=== PATIENT | female | born 1970 | race Caucasian/White ===

== ENCOUNTER 2025-07-13 15:59 | Inpatient (IN) | payer SELFPAY ==
[2025-07-13] VITALS (12 sets, daily range): BP systolic 94–115; BP diastolic 48–58; PULSE 70–101; RESP 16; TEMP 36.6; O2SAT 96–100; BMI 25.3; BMI 25.2
--- NOTE | ~2025-07-13 | CT_ITS ---
EXAMINATION: CT forearm RT w con DATE: 07/13/2025 18:25 INDICATION: Right forearm swelling with concern for abscess. TECHNIQUE: High resolution computed tomography (CT) of the right forearm was performed with 100 mL Omnipaque-350 intravenous contrast. Additional sagittal and coronal reconstructions were performed. Automated exposure control and iterative reconstruction technique were employed. The dose-length product was 1023.10 mGy-cm. COMPARISON: Right forearm radiographs dated 07/13/2025 FINDINGS: Bone alignment is normal. No fracture. Moderate-sized enthesophyte at the olecranon. 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 No elbow joint effusion. There is diffuse mild skin thickening and prominent subcutaneous edema in the right upper arm (at the posterior medial mid upper arm is becoming more severe as it extends distally throughout the forearm and extending over the dorsum of the hand. No evident abscess or soft tissue gas. There are several enhancing ovoid likely reactive lymph nodes along the vasculature at the antecubital fossa and distal upper arm which measure up to 7 mm in maximal short axis diameter. The vasculature of the visualized right arm appears normal and well opacified with no evident hemodynamically significant stenosis or thrombosis. IMPRESSION: 1. Diffuse nonspecific cellulitis throughout the right forearm without evident abscess or soft tissue gas. 2. Likely reactive lymphadenopathy at the antecubital fossa and distal upper arm. Reviewed, dictated and finalized at location A. ER/WAITRESS CAFETERIA IMPRESSION: 1. Diffuse nonspecific cellulitis throughout the right forearm without evident abscess or soft tissue gas. 2. Likely reactive lymphadenopathy at the antecubital fossa and distal upper ar m.
--- NOTE | ~2025-07-13 | XR_ITS ---
XR forearm RT 2V 07/13/2025 16:54 Indication: Right arm swelling Procedure: 2 views right forearm Comparison: No prior studies for comparison. Findings: There is anatomic alignment. No fracture, subluxation or dislocation. Mild diffuse soft tissue swelling. No foreign bodies. Impression: 1: No acute bone or joint abnormality. Reviewed, dictated and finalized at location O. E FOLLOWER Impression: 1: No acute bone or joint abnormality.
--- NOTE | ~2025-07-13 | XR_ITS ---
EXAMINATION: XR chest 2V DATE: 07/14/2025 08:20 INDICATION: Cough and wheezing TECHNIQUE: PA and lateral views of the chest were obtained. COMPARISON: Chest radiograph dated 06/15/12 FINDINGS: Very small bilateral pleural effusions with blunting at the posterior sulci but not the costophrenic angles. Bibasilar opacities, right greater than left which could represent atelectasis, pneumonia or mild pulmonary edema. The cardiomediastinal silhouette is normal. IMPRESSION: 1. Mild bibasilar opacities which could represent atelectasis, mild pulmonary edema or pneumonia. 2. Very small bilateral pleural effusions. Reviewed, dictated and finalized at location A. FITTER IMPRESSION: 1. Mild bibasilar opacities which could represent atelectasis, mild pulmonary e keesha or pneumonia. 2. Very small bilateral pleural effusions.
--- NOTE | ~2025-07-13 | US_ITS ---
EXAMINATION: US venous doppler UE RT DATE: 07/14/2025 16:07 INDICATION: Right upper extremity pain and redness with swelling TECHNIQUE: Ruano scale images with and without compression and Doppler images of the right upper extremity veins were obtained. COMPARISON: None. FINDINGS: The right internal jugular vein, subclavian vein, axillary vein, brachial veins, basilic vein, cephalic vein, radial vein, and ulnar vein are patent. IMPRESSION: 1. Patent right upper extremity veins. No evidence of deep venous thrombosis. Reviewed, dictated and finalized at location O. S ENGINEER ACCOUNT MANAGER
--- OUTSIDE RECORDS SUMMARY | 2025-07-13 16:02 | XMS_ITS | Patient Health Record ---
Author Organization [facility] Address [address] [place] [address] Phone [phone] Care Team Providers Care Head Of Ethics And Compliance Name Role Phone Ly Pelaez APRN Primary Care Provider [employer] [facility], Adult CHRISTINA Unavailabl e [phone] Reason For Referral No Information Medications Medication SIG (Take, Route, Frequency, Duration) Notes Start Date End Date Diagnosis (ICD Code) Status Lipitor 10 MG Tablet 1 tablet Orally Once a day; Duration: 30 day(s) 06/09/2016 Hyperlipidemia, unspecified hyperlipidemia type (ICD_10 - E78.5) Active Suboxone 8-2 MG Film 1/4 application under the tongue and allow to dissolve Sublingual three times a day; Duration: 7 days Substance abuse (ICD_10 - F19.10) Active Remeron 15 MG Tablet 1 tablet at bedtime Orally Once a day; Duration: 30 day(s) Substance abuse (ICD_10 - F19.10) Active Social History Sex Observation Social History Observation Description Sex Observation Female Social History Primary Social History Social Info Question Answer Notes Living Arrangement Living Arrangement: Independent Irais ing Is this a supportive environment? Yes Tobacco Use - do not use Tobacco Use: Current Duration: 30 Years Interested in quitting: No Type of Tobacco: Cigarettes Quanity per day: .5 pack to 1 pack Quit Attempts in the past: No Employment Status Employment Status: Unemployed Illicit Substance Usage Illicit Substance Usage: Yes Interested in quitting: Yes Substance Used: Heroin Frequency Heroin is used: every day Alcohol Use Alcohol Use Frequency: Never Problems Problem Type SNOMED Code ICD Code Dates Problem Status W/U Status Risk Notes Problem Substance abuse (2535549700) Substance abuse (F19.10) Added On:05/22 Active confirmed Problem Substance dependence (1507668502) Substance dependence (F19.20) Added On:06/17 Active confirmed Problem Depressive disorder (disorder) (71241868) Depression, unspecified depression type (F32.9) Added On:05/22 Active confirmed Problem Hyperlipidaemia (94240112) Hyperlipidemia, unspecified hyperlipidemia type (E78.5) Added On:06/09 Active confirmed Plan Of Treatment Pending Test Test Name Order Date Hemoglobin A1c* 06/09/2016 Glucose Tolerance (3 Sp Blood) 6 CMP14+LP+CBC/D/Plt+T4+TSH 05/22/2016 Insurance Providers Payer Name Payer Address Payer Phone Subscriber Number Group Number Insured Name Patient Relationship to Insured Coverage Start Date Coverage End Date [facility] [address] [address] [place] [phone] [id number] Lily Gatica Self - patient is the insured 4
--- NOTE | 2025-07-13 16:43 | ECG_ITS ---
Test Date: 2025-07-13 17:30:09 Measurements Intervals [place] Rate: 96 P: 62 NH: 143 QRS: 76 QRSD: 91 T: 47 QT: 322 QTc: 408 Interpretive Statements SINUS RHYTHM POSSIBLE LEFT ATRIAL ENLARGEMENT MINIMAL Q WAVES- ANTEROLAT/INF LEADS BORDERLINE ECG No previous ECG available for comparison Electronically Signed On 07-13-2025 20:32:28 EVP GENERAL COUNSEL by Melvin Winters D.O.
--- NOTE | 2025-07-13 16:46 | ED.SKABFB ---
HPI - Skin/Abscess/Foreign Bdy General Chief complaint: Skin/Abscess/Foreign Body <Rachael Pedro APRN - Last Filed: 07/13/25 19:10> Stated complaint: R ARM SWELLING,REDNESS SCRATCHED 5 DAYS AGO <Rachael Pedro APRN - Last Filed: 07/13/25 19:10> Time Seen by Provider: 07/13/25 16:09 <Rachael Pedro APRN - Last Filed: 07/13/25 19:10> History of Present Illness HPI narrative: Patient is a 54-year-old female who presents to the ER with right forearm redness and swelling that extends up to her mid right bicep. She reports she 1st noticed the redness 4-5 days ago. Patient reports she was cleaning a neighbor's house when she reached into event and scratched her right forearm. She reports she used to be an IV drug user but has not used in years. Patient endorses a history of sepsis and was on Suboxone for many years. She denies taking any daily medications at this time. Patient denies any recent fevers, purulent drainage, or rashes to other parts of her body. She endorses decreased range of motion in her right elbow, right wrist, right hand, and right digits. <Rachael Pedro APRN - Last Filed: 07/13/25 19:10> Related Data Allergies/Adverse reactions: Allergies Allergy/AdvReac Type Severity Reaction Status Date / Time No Known Allergies Allergy Verified 07/13/25 16:00 <Rachael Pedro APRN - Last Filed: 07/13/25 19:10> Review of Systems Review of Systems: All systems reviewed & are unremarkable except as noted in HPI and below <Rachael Pedro APRN - Last Filed: 07/13/25 19:10> Exam Narrative: GENERAL: Well appearing, well-nourished, non-toxic, in mild distress due to pain. HEAD: Normocephalic, atraumatic. NECK: Supple. No adenopathy, no masses. RESPIRATORY: Airway patent, respirations nonlabored. Clear to auscultation bilaterally, no rales, rhonchi, wheezing. CARDIOVASCULAR: Tachycardia without murmurs, rubs, or gallops. Peripheral pulses 2+ and equal bilaterally. ABDOMINAL: Soft, nontender, nondistended, no hepatosplenomegaly. Normoactive BS. MUSCULOSKELETAL: Moves all extremities. Strength/ROM intact without gross deformities. SKIN: Warm, dry, normal color. No rashes. EXCESSIVE R forearm/upper arm redness and swelling, intermittent blisters, no visible oozing or drainage. NEURO: A&O X3. Speech clear. Cranial nerves II-XII intact. No ataxic movements. PSYCHIATRIC: Appropriate mood and affect. Normal interaction. <Rachael Pedro, GI TECH - Last Filed: 07/13/25 19:10> Course MANAGER OF MANUFACTURING/PA Physician Supervision This visit was performed by both a physician and an Advanced Practice Provider. I performed all aspects of the Medical Decision Making as documented. <Harry Ritchie DO - Last Filed: 07/13/25 21:31> Vital Signs Vital signs: Vital Signs Temperature 97.9 F 07/13/25 16:01 Pulse Rate 101 H 07/13/25 16:01 Respiratory Rate 16 07/13/25 16:01 Blood Pressure 111/51 L 07/13/25 16:01 Pulse Oximetry 96 07/13/25 16:01 Oxygen Delivery Room Air 07/13/25 16:01 Temperature 97.9 F 07/13/25 16:01 Pulse Rate 88 07/13/25 18:49 Respiratory Rate 16 07/13/25 18:49 Blood Pressure 104/48 L 07/13/25 18:49 Pulse Oximetry 99 07/13/25 18:49 Oxygen Delivery Room Air 07/13/25 16:01 <Rachael Pedro, GI TECH - Last Filed: 07/13/25 19:10> Vital Signs Temperature 97.9 F 07/13/25 16:01 Pulse Rate 101 H 07/13/25 16:01 Respiratory Rate 16 07/13/25 16:01 Blood Pressure 111/51 L 07/13/25 16:01 Pulse Oximetry 96 07/13/25 16:01 Oxygen Delivery Room Air 07/13/25 16:01 Temperature 97.9 F 07/13/25 16:01 Pulse Rate 88 07/13/25 18:49 Respiratory Rate 16 07/13/25 18:49 Blood Pressure 104/48 L 07/13/25 18:49 Pulse Oximetry 99 07/13/25 18:49 Oxygen Delivery Room Air 07/13/25 16:01 <Harry Ritchie DO - Last Filed: 07/13/25 21:31> [facility] Narrative Medical decision making narrative: Patient is a 54-year-old female who presents to the ER with right forearm redness and swelling that extends up to her mid right bicep. She reports she 1st noticed the redness 4-5 days ago. Patient reports she was cleaning a neighbor's house when she reached into event and scratched her right forearm. She reports she used to be an IV drug user but has not used in years. Patient endorses a history of sepsis and was on Suboxone for many years. She denies taking any daily medications at this time. Patient denies any recent fevers, purulent drainage, or rashes to other parts of her body. She endorses decreased range of motion in her right elbow, right wrist, right hand, and right digits. Labs Ordered: CBC, CMP, UDS, lactic acid, PTT, INR, CRP, blood cultures Imaging Ordered: CT right forearm, right forearm x-ray Medications Ordered: 1.7 L normal saline IV bolus, vancomycin IV, Toradol IV, ceftriaxone IV Results: Pt's R forearm x-ray indicates There is anatomic alignment. No fracture, subluxation or dislocation. Mild diffuse soft tissue swelling. No foreign bodies. Diagnosis: right forearm cellulitis extending into right bicep 0- Care signed out to Dr. Ritchie pending CT scan results. <Rachael Pedro, CHASE - Last Filed: 07/13/25 19:10> Patient is a 54-year-old female who presents to the ER with right forearm redness and swelling that extends up to her mid right bicep. She reports she 1st noticed the redness 4-5 days ago. Patient reports she was cleaning a neighbor's house when she reached into event and scratched her right forearm. She reports she used to be an IV drug user but has not used in years. Patient endorses a history of sepsis and was on Suboxone for many years. She denies taking any daily medications at this time. Patient denies any recent fevers, purulent drainage, or rashes to other parts of her body. She endorses decreased range of motion in her right elbow, right wrist, right hand, and right digits. Labs Ordered: CBC, CMP, UDS, lactic acid, PTT, INR, CRP, blood cultures Imaging Ordered: CT right forearm, right forearm x-ray Medications Ordered: 1.7 L normal saline IV bolus, vancomycin IV, Toradol IV, ceftriaxone IV Results: Pt's R forearm x-ray indicates There is anatomic alignment. No fracture, subluxation or dislocation. Mild diffuse soft tissue swelling. No foreign bodies. Diagnosis: right forearm cellulitis extending into right bicep 1900- Care signed out to Dr. Ritchie pending CT scan results. CT scan showed left forearm cellulitis without rim enhancing fluid collection. No acute osseous pathology. Left upper arm antecubital fossa lymphadenopathy. Patient will require admission for severe cellulitis. Case was discussed with hospitalist who will admit the patient. <Harry Ritchie DO - Last Filed: 07/13/25 21:31> Differential Diagnosis Differential Diagnosis: cellulitis, abscess, IV drug user, sepsis <Rachael Pedro APRN - Last Filed: 07/13/25 19:10> Lab Data MDM Lab Attestation statement: I personally reviewed the patient's lab results. <Rachael Pedro APRN - Last Filed: 07/13/25 19:10> Result diagrams: 07/13/25 17:23 07/13/25 17:23 <Rachael Pedro GI TECH - Last Filed: 07/13/25 19:10> Labs: Lab Results 07/13/25 07/13/25 Range/Units 17:23 17:35 WBC 11.2 H (4.5-10.0) K/mm3 RBC 4.65 (4.2-5.4) M/mm3 Hgb 13.4 (12.0-15.0) g/dL Hct 41.1 (37.0-47.0) % MCV 88.4 (80-100) fl MCH 28.8 (26-34) pg MCHC 32.6 (32-36) g/dl RDW 13.9 (11.5-14.5) % Plt Count 176 (150-375) k/mm3 MPV 9.8 (7.4-10.4) fl Immature Gran % (Auto) 0.4 (0-0.5) % Neut % (Auto) 80.5 H (45.5-73.1) % Lymph % (Auto) 9.4 L (18.3-44.2) % [place] % (Auto) 9.0 H (2.6-8.5) % Eos % (Auto) 0.4 (0-4.4) % Baso % (Auto) 0.3 (0.2-1.2) % Lymph # (Auto) 1.05 (0.9-3.2) K/mm3 [place] # (Auto) 1.0 H (0.1-0.6) K/mm3 Eos # (Auto) 0.0 (0-0.3) K/mm3 Baso # (Auto) 0.0 (0.0-0.1) K/mm3 Abs Immat Gran (auto) 0.04 H (0.00-0.031) K/mm3 Absolute Neuts (auto) 9.0 H (1.3-6.7) K/mm3 Absolute Nucleated RBC 0.000 (0.0-0.012) K/mm3 Nucleated RBC % 0.0 (0.0-0.2) % PT 13.5 (11.1-14.7) Seconds INR 1.0 APTT 24.8 (22.3-36.8) Seconds Sodium 134 L (137-145) mmol/L Potassium 3.6 (3.4-5.0) mmol/L Chloride 102 (98-107) mmol/L Carbon Dioxide 23 (22-30) mmol/L Anion Gap 9 (4-12) mmol/L BUN 22 H (7-17) mg/dL Creatinine 0.53 L (0.7-1.0) mg/dL Estim Creat Clear Calc 80 ml/min Estimated GFR > 60 (59 - ) Glucose 141 H (65-110) mg/dL Lactic Acid 0.9 (0.7-2.0) mmol/L Calcium 9.3 (8.4-10.2) mg/dL Total Bilirubin 0.6 (0.2-1.3) mg/dL AST 26 (14-36) U/L ALT 21 (6-35) U/L Alkaline Phosphatase 128 H (38-126) U/L C-Reactive Protein 36.7 H (<1.0) mg/dL Total Protein 7.7 (6.3-8.2) g/dL Albumin 4.0 (3.5-5.1) g/dL Urine Color Dark yellow (Yellow) Urine Appearance Cloudy H (Clear) Urine pH 5.5 (5.0-9.0) Ur Specific [place] 1.037 H (1.001-1.035) Urine Protein 2+ H (Negative) mg/dL Urine Glucose (UA) Negative (Negative) mg/dL Urine Ketones Trace H (Negative) mg/dL Ur Blood (Man) Negative (Negative) Urine Nitrate Negative (Negative) Urine Bilirubin 1+ H (Negative) Urine Urobilinogen 1.0 (<2.0) mg/dL Add Ur Microanalysis Reviewed Leukocyte Esterase Rfl 1+ H (Negative) CJ/UL Urine RBC 6-10 H (0-2) /hpf Urine WBC 6-10 H (0-3) /hpf Ur Squamous Epith Cells Many H (Few) /hpf Urine Bacteria 3+ H /hpf Urine Casts 3-5 Urine Opiates Screen Negative (Negative) Urine Methadone Screen Negative (Negative) Ur Barbiturates Screen Negative (Negative) Ur Phencyclidine Scrn Negative (Negative) Ur Amphetamine Screen Positive A (Negative) U Benzodiazepines Scrn Negative (Negative) Urine Cocaine Screen Negative (Negative) U Cannabinoids Screen Negative (Negative) <Rachael Pedro, GI TECH - Last Filed: 07/13/25 19:10> Lab Results 07/13/25 07/13/25 Range/Units 17:23 17:35 WBC 11.2 H (4.5-10.0) K/mm3 RBC 4.65 (4.2-5.4) M/mm3 Hgb 13.4 (12.0-15.0) g/dL Hct 41.1 (37.0-47.0) % MCV 88.4 (80-100) fl MCH 28.8 (26-34) pg MCHC 32.6 (32-36) g/dl RDW 13.9 (11.5-14.5) % Plt Count 176 (150-375) k/mm3 MPV 9.8 (7.4-10.4) fl Immature Gran % (Auto) 0.4 (0-0.5) % Neut % (Auto) 80.5 H (45.5-73.1) % Lymph % (Auto) 9.4 L (18.3-44.2) % [place] % (Auto) 9.0 H (2.6-8.5) % Eos % (Auto) 0.4 (0-4.4) % Baso % (Auto) 0.3 (0.2-1.2) % Lymph # (Auto) 1.05 (0.9-3.2) K/mm3 [place] # (Auto) 1.0 H (0.1-0.6) K/mm3 Eos # (Auto) 0.0 (0-0.3) K/mm3 Baso # (Auto) 0.0 (0.0-0.1) K/mm3 Abs Immat Gran (auto) 0.04 H (0.00-0.031) K/mm3 Absolute Neuts (auto) 9.0 H (1.3-6.7) K/mm3 Absolute Nucleated RBC 0.000 (0.0-0.012) K/mm3 Nucleated RBC % 0.0 (0.0-0.2) % PT 13.5 (11.1-14.7) Seconds INR 1.0 APTT 24.8 (22.3-36.8) Seconds Sodium 134 L (137-145) mmol/L Potassium 3.6 (3.4-5.0) mmol/L Chloride 102 (98-107) mmol/L Carbon Dioxide 23 (22-30) mmol/L Anion Gap 9 (4-12) mmol/L BUN 22 H (7-17) mg/dL Creatinine 0.53 L (0.7-1.0) mg/dL Estim Creat Clear Calc 80 ml/min Estimated GFR > 60 (59 - ) Glucose 141 H (65-110) mg/dL Lactic Acid 0.9 (0.7-2.0) mmol/L Calcium 9.3 (8.4-10.2) mg/dL Total Bilirubin 0.6 (0.2-1.3) mg/dL AST 26 (14-36) U/L ALT 21 (6-35) U/L Alkaline Phosphatase 128 H (38-126) U/L C-Reactive Protein 36.7 H (<1.0) mg/dL Total Protein 7.7 (6.3-8.2) g/dL Albumin 4.0 (3.5-5.1) g/dL Urine Color Dark yellow (Yellow) Urine Appearance Cloudy H (Clear) Urine pH 5.5 (5.0-9.0) Ur Specific [place] 1.037 H (1.001-1.035) Urine Protein 2+ H (Negative) mg/dL Urine Glucose (UA) Negative (Negative) mg/dL Urine Ketones Trace H (Negative) mg/dL Ur Blood (Man) Negative (Negative) Urine Nitrate Negative (Negative) Urine Bilirubin 1+ H (Negative) Urine Urobilinogen 1.0 (<2.0) mg/dL Add Ur Microanalysis Reviewed Leukocyte Esterase Rfl 1+ H (Negative) CJ/UL Urine RBC 6-10 H (0-2) /hpf Urine WBC 6-10 H (0-3) /hpf Ur Squamous Epith Cells Many H (Few) /hpf Urine Bacteria 3+ H /hpf Urine Casts 3-5 Urine Opiates Screen Negative (Negative) Urine Methadone Screen Negative (Negative) Ur Barbiturates Screen Negative (Negative) Ur Phencyclidine Scrn Negative (Negative) Ur Amphetamine Screen Positive A (Negative) U Benzodiazepines Scrn Negative (Negative) Urine Cocaine Screen Negative (Negative) U Cannabinoids Screen Negative (Negative) <Harry Ritchie DO - Last Filed: 07/13/25 21:31> Imaging Data Attestation: I personally reviewed and interpreted this imaging study as follows: <Rachael Pedro APRN - Last Filed: 07/13/25 19:10> Radiologist's impression: ITS Impressions Forearm X-Ray 07/13/25 17:08 Impression: 1: No acute bone or joint abnormality. <Rachael Pedro APRN - Last Filed: 07/13/25 19:10> ITS Impressions Forearm X-Ray 07/13/25 17:08 Impression: 1: No acute bone or joint abnormality. <Harry Ritchie DO - Last Filed: 07/13/25 21:31> Discharge Plan Discharge Clinical Impression: Methamphetamine abuse Cellulitis Qualifiers: Site of cellulitis: extremity Site of cellulitis of extremity: upper extremity Laterality: right Qualified Code(s): L03.113 - Cellulitis of right upper limb <Rachael Pedro APRN - Last Filed: 07/13/25 19:10> Patient Disposition: Still a Patient <Rachael Pedro APRN - Last Filed: 07/13/25 19:10> Condition: Stable <Rachael Pedro APRN - Last Filed: 07/13/25 19:10> Patient Language: Frisian <Rachael Pedro APRN - Last Filed: 07/13/25 19:10> Follow-up/Referrals: PHYSICIAN,STRIPER MACHINE [Primary Care Provider, Internal Medicine] <Rachael Pedro APRN - Last Filed: 07/13/25 19:10>
[2025-07-13 17:28] LABS: Hematocrit 41.1 % (37.0-47.0); Hemoglobin 13.4 g/dL (12.0-15.0); Immature Granulocyte Percent A 0.4 % (0-0.5); Lymphocytes Absolute Auto 1.05 K/mm3 (0.9-3.2); Mean Corpuscular HGB Conc 32.6 g/dl (32-36); Mean Corpuscular Hemoglobin 28.8 pg (26-34); Mean Corpuscular Volume 88.4 fl (80-100); Nucleated Red Blood Cells Absolute Auto 0.000 K/mm3 (0.0-0.012); Nucleated Red Blood Cells Perc 0.0 % (0.0-0.2); Platelet Count Result 176 k/mm3 (150-375); Red Blood Count 4.65 M/mm3 (4.2-5.4); White Blood Count 11.2 K/mm3 (4.5-10.0)
[2025-07-13] MEDS: KETOROLAC 15 MG/ML VIAL (*BKC) IV PUSH (17:36)
[2025-07-13] MEDS: SODIUM CHLORIDE 0.9% IV 800 ML 999 ML IV CONT (17:36)
[2025-07-13] MEDS: SODIUM CHLORIDE 0.9% IV 1,000 ML 999 ML IV CONT (17:36)
[2025-07-13 17:40] LABS: INR 1.0; Partial Thromboplastin Time 24.8 Seconds (22.3-36.8); Prothrombin Time 13.5 Seconds (11.1-14.7)
[2025-07-13 17:44] LABS: Alanine Aminotransferase 21 U/L (6-35); Albumin Level 4.0 g/dL (3.5-5.1); Alkaline Phosphatase 128 U/L (38-126); Anion Gap 9 mmol/L (4-12); Aspartate Amino Transferase 26 U/L (14-36); Bilirubin,Total 0.6 mg/dL (0.2-1.3); Blood Urea Nitrogen 22 mg/dL (7-17); Calcium 9.3 mg/dL (8.4-10.2); Carbon Dioxide 23 mmol/L (22-30); Chloride 102 mmol/L (98-107); Estimated CRCL calculation 80 ml/min; Estimated Glomerular Filt Rate > 60; Glucose 141 mg/dL (65-110); Potassium 3.6 mmol/L (3.4-5.0); Sodium 134 mmol/L (137-145); Total Protein 7.7 g/dL (6.3-8.2)
[2025-07-13 17:54] LABS: Add Urine Microscopic? YES; Appearance Urine Cloudy (Clear); Glucose Urine UA Negative (Negative); Leukocyte Esterase Ur 1+ LEU/UL (Negative); Need Manual Microscopic Reviewed; Nitrate Urine Negative (Negative); Specific Grav Ur 1.037 (1.001-1.035)
[2025-07-13 18:10] LABS: CRP 36.7 mg/dL (<1.0)
[2025-07-13 18:21] LABS: Cannabinoid Screen Urine Negative (Negative)
[2025-07-13] MEDS: cefTRIAXone 1 GM in SODIUM CHLORIDE 0.9% IV 50 ML 100 ML IVPB (20:14)
[2025-07-13] MEDS: VANCOMYCIN 1,500 MG/NS 500 ML 1,500 MG/500 ML BAG 250 MG IVPB (20:15)
--- NOTE | 2025-07-13 21:37 | PM.IMHP2 ---
H&P: HPI History of Present Illness Date/Time: 07/13/25 21:37 Chief Complaint: right arm redness and swelling Narrative: 54-year-old female with a past medical history of essential hypertension, COPD and pre diabetes (not on any home medications), heroin use greater than 10 years ago, and snorting methamphetamines who presented to the ER with right arm redness swelling and pain over the last 5 days. The patient reported that initially her arm started with a small area of redness to the dorsal mid forearm and over the next 48 hours she developed patchy areas of erythema and worsening edema. 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 She has been having fevers up to 102.5 for the last 3 days. Her fingers are so swollen that she is having difficulty closing her fist. Over the last 24 hours she has developed some blisters on the dorsum of her wrist and over the last 8-12 hours at erythema has went from the forearm up into the mid upper arm. She reports that they arm is severely tender to palpation. She has been taking ibuprofen 400 mg every 6 hours for the last 3 days to keep the fever down. She has had decreased appetite. She denies any nausea or vomiting. She states that she has been having increased shortness of breath for months. She knows that it is due to her continued tobacco use. She has not had any increased cough from baseline. She did have some atypical chest pain while she was at work 2 days ago. She would have sharp stabbing pain in left chest that would last for a few seconds and then resolved and occurred 3 or 4 times. She assumed it was due to feeling acutely ill from her arm infection. She was also having generalized body aches and fatigue. She also is having a sharp intermittent headache. She denies any vision changes or confusion. She denies any dysuria, increased urinary frequency or hematuria. She has been having normal bowel movements. She has had a history of cellulitis in her lower extremity a couple of years ago resulting in sepsis and hospital stay. She has not seen a doctor in at least 8 years. She used to inject heroin but reportedly quit in 2014. She stated that she does not usually use other drugs but did snort some methamphetamines on the in order to give herself some energy. Review of Systems Review of Systems: 12 systems were reviewed with pertinent positives and negatives per HPI. Except as documented in the HPI, all other systems were reviewed and are negative. [facility] Past Medical History Medical History (Updated 07/14/25 @ 00:08 by Chantale Mederos DO) Pre-diabetes Heroin addiction In remission since at least 2014 Surgical History Surgical History (Updated 07/13/25 @ 23:52 by Chantale Mederos DO) History of primary section Family History Family History (Updated 07/13/25 @ 23:54 by Chantale Mederos DO) Mother Breast cancer Sibling Overdose Drug addiction Social History Social History (Updated 07/13/25 @ 23:57 by Chantale Mederos DO) Social History: Patient is . She lives with her boyfriend of 2 years. She has a distant history of IV drug abuse with heroin greater than 10 years ago. She also snorted amphetamines 07/12/2025 but denies prior use history of amphetamines. She has smoked up to 1 pack of cigarettes per day since she was 14 years old. She denies any history of alcohol use. She has 3 sons and 1 daughter. Code status: Full code Surrogate decision maker: Nadiaerinn Trejo (stepmother) Smoking packs per day: 1 Smoking cigarettes per day: 20.0 Years smoked: 40 Smoking pack-years: 40.00 Smoking status: Current every day smoker Tobacco type: cigarettes Alcohol intake: never Substance use: former Substance use type: heroin and methamphetamine Other substance usage details: Heroin stopped 2014 Last use: Amphetamine yesterday 07/12/25 Lack of Transportation: No Lack of Food: Never True Current Housing: I Have Housing Concerned About Future Housing: No Difficulty Paying Gas/Electric Bills: No Difficulty Paying for Meds: No Currently Unemployed: No Education: Trade/Vocational Certificate Difficulty w/ Childcare or Family Care: No Spiritual care concerns: No Meds Home Medications and Allergies Home Medications ?Medication ?Instructions ?Recorded ?Confirmed ?Type No Home Medications 07/13/25 07/13/25 History Allergies Allergy/AdvReac Type Severity Reaction Status Date / Time No Known Allergies Allergy Verified 07/13/25 23:03 Vital Signs Vital Signs - 24 hr 07/13/25 16:01 07/13/25 18:49 Temperature 97.9 F Pulse Rate 101 H 88 Respiratory Rate 16 16 Blood Pressure 111/51 L 104/48 L Pulse Oximetry 96 99 Oxygen Delivery Room Air Exam Narrative: Weight 62.5 kg BMI 25.2 Const: Other: Appears much older than stated age, no acute distress, thin body habitus HENMT: Other: Mucous membranes are moist, positive oral pharyngeal erythema, edentulous in upper and lower jaw Eyes: Other: No scleral icterus, pupils are equal and reactive Neck: Other: No JVD, no lymphadenopathy, trachea midline Resp: Other: Diffuse wheezing anterior and posterior lung lindsey, no increased work of breathing Cardio: Other: Regular rate, regular rhythm, no murmurs, 2+ bilateral radial and pedal pulses GI: Other: Soft, nontender, nondistended, positive bowel sounds Skin: Other: Papular areas of erythema to the right forearm, marked edema of the hand and forearm majority of the erythema is on the dorsal surface of the forearm with areas of vesicular formation most notably on the dorsum of the right wrist, edema does extend past the forearm with erythema traveling up the ventral aspect of the upper arm all of which is tender to palpation, skin is warm to touch Neuro: Other: Alert oriented, speech is clear, no facial asymmetry, no localizing neurologic deficits noted during the course of conversation Extrem: Other: Marked edema and swelling of the right upper extremity with decreased range of motion in both flexion and extension of the right hand and right wrist due to degree of edema with edema extending up past the elbow into the mid upper arm Psych: Other: Appropriate mood and affect, pleasant and cooperative, judgment and insight intact Results Labs Labs: Laboratory Tests 07/13/25 17:23 07/13/25 17:23 07/13/25 07/13/25 17:23 17:35 WBC 11.2 H RBC 4.65 Hgb 13.4 Hct 41.1 MCV 88.4 MCH 28.8 MCHC 32.6 RDW 13.9 Plt Count 176 MPV 9.8 Immature Gran % (Auto) 0.4 Neut % (Auto) 80.5 H Lymph % (Auto) 9.4 L [place] % (Auto) 9.0 H Eos % (Auto) 0.4 Baso % (Auto) 0.3 Lymph # (Auto) 1.05 [place] # (Auto) 1.0 H Eos # (Auto) 0.0 Baso # (Auto) 0.0 Abs Immat Gran (auto) 0.04 H Absolute Neuts (auto) 9.0 H Absolute Nucleated RBC 0.000 Nucleated RBC % 0.0 PT 13.5 INR 1.0 APTT 24.8 Sodium 134 L Potassium 3.6 Chloride 102 Carbon Dioxide 23 Anion Gap 9 BUN 22 H Creatinine 0.53 L Estim Creat Clear Calc 80 Estimated GFR > 60 Glucose 141 H Lactic Acid 0.9 Calcium 9.3 Total Bilirubin 0.6 AST 26 ALT 21 Alkaline Phosphatase 128 H C-Reactive Protein 36.7 H Total Protein 7.7 Albumin 4.0 Urine Color Dark yellow Urine Appearance Cloudy H Urine pH 5.5 Ur Specific [place] 1.037 H Urine Protein 2+ H Urine Glucose (UA) Negative Urine Ketones Trace H Ur Blood (Man) Negative Urine Nitrate Negative Urine Bilirubin 1+ H Urine Urobilinogen 1.0 Add Ur Microanalysis Reviewed Leukocyte Esterase Rfl 1+ H Urine RBC 6-10 H Urine WBC 6-10 H Ur Squamous Epith Cells Many H Urine Bacteria 3+ H Urine Casts 3-5 Urine Opiates Screen Negative Urine Methadone Screen Negative Ur Barbiturates Screen Negative Ur Phencyclidine Scrn Negative Ur Amphetamine Screen Positive A U Benzodiazepines Scrn Negative Urine Cocaine Screen Negative U Cannabinoids Screen Negative Impressions Forearm X-Ray 07/13/25 17:08 Impression: 1: No acute bone or joint abnormality. CT of the right forearm with contrast personally reviewed demonstrated generalized edema/cellulitis without obvious abscess but there was an area in the distal forearm in the area of the wrists that looks like flat gum that may be developing. Stat Radiologic interpretation suggested cellulitis without rim enhancing fluid collection and left upper arm antecubital fossa lymphadenopathy Assessment and Plan Assessment and plan (1) Cellulitis: Qualifiers: Laterality: right Site of cellulitis: extremity Site of cellulitis of extremity: upper extremity Qualified Code(s): L03.113 - Cellulitis of right upper limb Code(s): L03.90 - Cellulitis, unspecified Status: Acute (2) Sepsis: Qualifiers: Sepsis type: sepsis due to unspecified organism Sepsis acute organ dysfunction status: without acute organ dysfunction Qualified Code(s): A41.9 - Sepsis, unspecified organism Code(s): A41.9 - Sepsis, unspecified organism Status: Acute (3) Methamphetamine use: Code(s): F15.90 - Other stimulant use, unspecified, uncomplicated Status: Acute (4) Hyperglycemia: Code(s): R73.9 - Hyperglycemia, unspecified Status: Acute (5) Abnormal urinalysis: Code(s): R82.90 - Unspecified abnormal findings in urine Status: Acute Plan Patient has severe cellulitis of the right forearm with edema extending from the hand up into the right upper arm with associated phlegmon. Patient did have fever up to 102.5 at home with elevated white count, and tachycardia and meets criteria for sepsis. Blood cultures have been obtained and are pending. Patient was initially started on Rocephin in the ER due to an abnormal urinalysis but patient is not having urinary symptoms and does not have a UTI. Subsequently the patient's antibiotic therapy has been changed to vancomycin. Although the patient does not have will localizing abscess currently would not surprise me a 1 developed. Will monitor wound closely. Will repeat CBC and electrolyte panel in a.m.. Patient does appear dehydrated with trace ketones in her urine elevated urine specific gravity elevated BUN. She did receive 30 mL/kilos fluid bolus in the ER. Will continue maintenance IV fluids overnight and re-evaluate fluid status in a.m.. The importance of avoiding all illicit substance use was discussed with the patient in detail. She verbalized understanding. Patient does have a history of prediabetes and does have some mild hyperglycemia on admission labs. Will check hemoglobin A1c with a.m. labs. Patient does smoke heavily. She wanted to leave the ER to go smoke. She has been educated that if she leaves the hospital to smoke it would be considered leaving AMA. She is agreeable to stay in the hospital currently and a nicotine patch has been provided. Patient is aware that she would benefit from cessation of smoking but is not ready to contemplate this at this time. MEDICAL DECISION MAKING NARRATIVE -Spoke with the ED provider in detail regarding patient's evaluation, workup and management -Patient seen and examined at bedside -Collaborated with patient's nurse at the bedside in detail and addressed all concerns -Labs, electrolytes, radiology, investigations and test results personally reviewed and interpreted unless otherwise specified -ED/Consult/Nursing/Ancilliary notes on the chart reviewed and appreciated -applicable past medical records and labs were reviewed and unless stated otherwise. -Spoke with patient at bedside and diagnosis, plan of care was discussed and questions answered. Hospitalist [facility] Advance Care Plan I have confirmed that the patient's Advanced Care Plan is present, code status is documented, or surrogate decision maker is listed in patient medical record.: Yes Medication Reconciliation I have utilized all available resources to obtain, update and review the patients current medications (includes all prescriptions, OTC, herbals, cannabis, and nutritional supplements).: Yes
[2025-07-13] MEDS: SODIUM CHLORIDE 0.9% IV 1,000 ML 100 ML IV CONT (21:40)
--- NOTE | 2025-07-13 22:16 | WPCEDHO ---
ED Hand Off Checklist All vitals saved:yes IV Site documented:yes All med administrations documented:yes Triage Note Triage Note PT TO ED FOR EVAL OF R ARM 07/13/25 16:01 REDNESS AND SWELLING INCREASING OVER PAST DAYS. DENIES ANY RECENT IV'S, ANIMAL BITES. REPORTS SCRATCHING HER ARM ON A VENT WHEN SHE WAS CLEANING IT Allergies No Known Allergies Allergy (Verified 07/13/25 16:00) Active Medications including assessments/comments Sodium Chloride (Normal Saline Iv) 1,000 mls @ 100 mls/hr IV CONT .Q10H LEIA Last Admin: 07/13/25 21:40 Dose: 100 mls/hr Documented By: PALLAVI Infusion/Titration Document 07/13/25 21:40 PALLAVI (Rec: 07/13/25 21:40 PALLAVI [id number]) Intake IV Site Peripheral Access Left Forearm Container Volume 1,000 Waste Amount 0 Dosing Infusion Rate 100 Cumulative Dose Not Applicable Increase/Decrease Started Elapsed Time Elapsed Time ( 0m minutes) Administered/Completed Medications Discontinued Medications Sodium Chloride (Normal Saline Iv) 1,000 mls @ 999 mls/hr IV CONT .Q1H1M STA Stop: 07/13/25 17:49 Last Infusion: 07/13/25 19:25 Dose: Infused Documented By: Admin: 07/13/25 17:36 Dose: 999 mls/hr Documented By: NOEMI Sodium Chloride (Normal Saline Iv) 800 mls @ 999 mls/hr IV CONT .Q49M STA Stop: 07/13/25 17:37 Last Infusion: 07/13/25 19:25 Dose: Infused Documented By: Admin: 07/13/25 17:36 Dose: 999 mls/hr Documented By: NOEMI Ceftriaxone Sodium 1 gm/ (Sodium Chloride) 50 mls @ 100 mls/hr IVPB ONCE STA Stop: 07/13/25 18:46 Last Infusion: 07/13/25 22:15 Dose: Infused Documented By: Admin: 07/13/25 20:14 Dose: 100 mls/hr Documented By: PALLAVI Vancomycin HCl (Vancomycin 1,500 Mg/Ns 500 Ml) 1,500 mg in 500 mls @ 250 mls/hr IVPB ONCE ONE Stop: 07/13/25 20:59 Last Admin: 07/13/25 20:15 Dose: 250 mls/hr Documented By: PALLAVI Ketorolac Tromethamine (Ketorolac 15 Mg/Ml Vial (*Bkc)) 15 mg IV PUSH ONCE ONE Stop: 07/13/25 16:47 Last Admin: 07/13/25 17:36 Dose: 15 mg Documented By: NOEMI Interventions/Assessments IV / Saline Lock, Insert Start: 07/13/25 16:01 Freq: Status: Active Protocol: Document 07/13/25 20:05 KEN (Rec: 07/13/25 20:06 KEN [id number]) IV Assessment Peripheral Access Left Forearm IV Catheter Access Initiated IV Insertion Date 07/13/25 IV Insertion Time 20:06 Catheter Gauge 22 IV Insertion 1 Attempts Ultrasound Used for No Placement IV Site Assessment WNL IV Care and WNL,Dressing Applied, Dated, Timed, and Initialed Maintenance Last Vital Signs Temperature 97.9 F 07/13/25 16:01 Pulse Rate 70 07/13/25 22:16 Respiratory Rate 16 07/13/25 18:49 Pulse Oximetry 100 07/13/25 22:16 Blood Pressure 110/58 L 07/13/25 22:16 Blood Pressure Mean 75 07/13/25 22:16 Blood Pressure Position Sitting 07/13/25 16:01 Oxygen Delivery Room Air 07/13/25 16:01 Weight 59.8 kg 07/13/25 16:01 Last Result - Abnormals Only WBC 11.2 K/mm3 (4.5-10.0) H 07/13/25 17:23 Neut % (Auto) 80.5 % (45.5-73.1) H 07/13/25 17:23 Lymph % (Auto) 9.4 % (18.3-44.2) L 07/13/25 17:23 [place] % (Auto) 9.0 % (2.6-8.5) H 07/13/25 17:23 [place] # (Auto) 1.0 K/mm3 (0.1-0.6) H 07/13/25 17:23 Abs Immat Gran (auto) 0.04 K/mm3 (0.00-0.031) H 07/13/25 17:23 Absolute Neuts (auto) 9.0 K/mm3 (1.3-6.7) H 07/13/25 17:23 Sodium 134 mmol/L (137-145) L 07/13/25 17:23 BUN 22 mg/dL (7-17) H 07/13/25 17:23 Creatinine 0.53 mg/dL (0.7-1.0) L 07/13/25 17:23 Glucose 141 mg/dL (65-110) H 07/13/25 17:23 Alkaline Phosphatase 128 U/L (38-126) H 07/13/25 17:23 C-Reactive Protein 36.7 mg/dL (<1.0) H 07/13/25 17:23 Urine Appearance Cloudy (Clear) H 07/13/25 17:35 Ur Specific [place] 1.037 (1.001-1.035) H 07/13/25 17:35 Urine Protein 2+ mg/dL (Negative) H 07/13/25 17:35 Urine Ketones Trace mg/dL (Negative) H 07/13/25 17:35 Urine Bilirubin 1+ (Negative) H 07/13/25 17:35 Leukocyte Esterase Rfl 1+ CJ/UL (Negative) H 07/13/25 17:35 Urine RBC 6-10 /hpf (0-2) H 07/13/25 17:35 Urine WBC 6-10 /hpf (0-3) H 07/13/25 17:35 Ur Squamous Epith Cells Many /hpf (Few) H 07/13/25 17:35 Urine Bacteria 3+ /hpf H 07/13/25 17:35 Ur Amphetamine Screen Positive (Negative) A 07/13/25 17:35 Most Recent Suicide Severity Rating Suicide Severity Rating NO RISK INDICATED 07/13/25 16:01
--- NOTE | 2025-07-13 22:53 | ADMGEN ---
This patient, Lily Gatica, was admitted to Medical Room 244-. Patient/family oriented to hospital policies and general routines including ID bracelet, bed and alarms, visiting hours, pain management, procedures, bathroom and other care routines, personal items, smoking policy, room service/diet, and visiting hours. Information on how to activate the Rapid Response Team has been discussed. Patient/Family are encouraged to report perceived risks to care and to ask questions if they do not understand what they are told or what they should do.
[2025-07-13] MEDS: MORPHINE SULFATE (*CRX) 4 MG/ML INJ IV PUSH (23:38)
[2025-07-13] MEDS: NICOTINE (*PBKC) 21 MG PATCH 1 PATCH TRANSDERM (23:43)
[2025-07-14 00:30] VITALS: BP 144/68; PULSE 93; RESP 18; TEMP 36.5; O2SAT 98
[2025-07-14 00:52] LABS: Strep Group A RT-PCR NOT DETECTED (Negative)
[2025-07-14] MEDS: MORPHINE SULFATE (*CRX) 4 MG/ML INJ IV PUSH ×2 (04:02→15:39)
[2025-07-14 05:44] LABS: Hematocrit 35.6 % (37.0-47.0); Hemoglobin 11.4 g/dL (12.0-15.0); Immature Granulocyte Percent A 0.4 % (0-0.5); Lymphocytes Absolute Auto 1.16 K/mm3 (0.9-3.2); Mean Corpuscular HGB Conc 32.0 g/dl (32-36); Mean Corpuscular Hemoglobin 28.8 pg (26-34); Mean Corpuscular Volume 89.9 fl (80-100); Nucleated Red Blood Cells Absolute Auto 0.000 K/mm3 (0.0-0.012); Nucleated Red Blood Cells Perc 0.0 % (0.0-0.2); Platelet Count Result 191 k/mm3 (150-375); Red Blood Count 3.96 M/mm3 (4.2-5.4); White Blood Count 9.9 K/mm3 (4.5-10.0)
[2025-07-14 05:55] LABS: Hemoglobin A1C 6.4 % (<5.7)
[2025-07-14 06:14] VITALS: BP 150/64; PULSE 89; RESP 18; TEMP 36.7; O2SAT 97
[2025-07-14 06:19] LABS: Anion Gap 7 mmol/L (4-12); Blood Urea Nitrogen 16 mg/dL (7-17); Calcium 8.2 mg/dL (8.4-10.2); Carbon Dioxide 23 mmol/L (22-30); Chloride 106 mmol/L (98-107); Estimated CRCL calculation 89 ml/min; Estimated Glomerular Filt Rate > 60; Glucose 121 mg/dL (65-110); Potassium 3.5 mmol/L (3.4-5.0); Sodium 136 mmol/L (137-145)
[2025-07-14 06:30] LABS: Thyroid Stimulating Hormone Reflex 1.240 uIU/mL (0.465-4.68)
--- NOTE | 2025-07-14 07:45 | PM.IMPN2 ---
Assessment and Plan Assessment and Plan (1) Cellulitis: Qualifiers: Laterality: right Site of cellulitis: extremity Site of cellulitis of extremity: upper extremity Qualified Code(s): L03.113 - Cellulitis of right upper limb Code(s): L03.90 - Cellulitis, unspecified Status: Acute Assessment and Plan: Patient has severe cellulitis of the right forearm with edema extending from the hand up into the right upper arm with associated phlegmon. No visible abscess as of now, obtaining CT. CT results: 1. Diffuse nonspecific cellulitis throughout the right forearm without evident abscess or soft tissue gas. 2. Likely reactive lymphadenopathy at the antecubital fossa and distal upper arm. Will monitor wound closely. Will repeat CBC and electrolyte panel in a.m. (2) Sepsis: Qualifiers: Sepsis acute organ dysfunction status: without acute organ dysfunction Sepsis type: sepsis due to unspecified organism Qualified Code(s): A41.9 - Sepsis, unspecified organism Code(s): A41.9 - Sepsis, unspecified organism Status: Acute Assessment and Plan: Resolved Patient did have fever up to 102.5 at home with elevated white count, and tachycardia and meets criteria for sepsis. Blood cultures have been obtained and are pending. Patient was initially started on Rocephin in the ER due to an abnormal urinalysis but patient is not having urinary symptoms and does not have a UTI. Subsequently the patient's antibiotic therapy has been changed to vancomycin. -BC pending -WBC normalized -VSS (3) Methamphetamine use: Code(s): F15.90 - Other stimulant use, unspecified, uncomplicated Status: Acute Assessment and Plan: The importance of avoiding all illicit substance use was discussed with the patient in detail. She verbalized understanding. (4) Hyperglycemia: Code(s): R73.9 - Hyperglycemia, unspecified Status: Acute Assessment and Plan: Patient does have a history of prediabetes and does have some mild hyperglycemia on admission labs. Hemoglobin A1c: 6.4, no prior result on file, will continue to trend and implement low dose sliding scale if necessary (5) Abnormal urinalysis: Code(s): R82.90 - Unspecified abnormal findings in urine Status: Acute Assessment and Plan: Patient was initially started on Rocephin in the ER due to an abnormal urinalysis but patient is not having urinary symptoms and does not have a UTI. Subsequently the patient's antibiotic therapy has been changed to vancomycin. for cellulitis. -Back on ceftriaxone for PNA (6) Community acquired pneumonia: Code(s): J18.9 - Pneumonia, unspecified organism Status: Acute Assessment and Plan: Via CXR + cough + RLL crackles WBC WDL, VSS Adding azithro & ceftriaxone 07/14 IS MRSA pending Plan Pending BC & RUE venous doppler US. Continue abx for cellulitis and PNA. The importance of avoiding all illicit substance use was discussed with the patient in detail. She verbalized understanding. Patient does smoke heavily. She wanted to leave the ER to go smoke. She has been educated that if she leaves the hospital to smoke it would be considered leaving AMA. She is agreeable to stay in the hospital currently and a nicotine patch has been provided. Patient is aware that she would benefit from cessation of smoking but is not ready to contemplate this at this time. Medical Record Review I have reviewed the following patient records and this information was taken into consideration when formulating the assessment and plan.: previous labs and previous hospitalizations Time Spent With Patient Time with patient: Greater than 35 minutes Subjective Date/time seen: 07/14/25 0941 Interval history: Pt sitting up in bed upon my arrival. Pt with obvious discomfort from RUE. Also reporting RUQ pain, she thinks it is gas pain because it is getting better. Denies N/V/D. Reports cough x3 days. Review of Systems Review of Systems: 12 systems were reviewed with pertinent positives and negatives per HPI. Except as documented in the HPI, all other systems were reviewed and are negative. Exam Narrative: Weight 62.5 kg BMI 25.2 Const: Other: Appears much older than stated age, no acute distress, thin body habitus HENMT: Other: Mucous membranes are moist, positive oral pharyngeal erythema, edentulous in upper and lower jaw Eyes: Other: No scleral icterus, pupils are equal and reactive Neck: Other: No JVD, no lymphadenopathy, trachea midline Resp: Other: RLL crackles, no increased work of breathing Cardio: Other: Regular rate, regular rhythm, no murmurs, 2+ bilateral radial and pedal pulses GI: Other: Soft, nontender, nondistended, positive bowel sounds Skin: Other: Papular areas of erythema to the right forearm, marked edema of the hand and forearm majority of the erythema is on the dorsal surface of the forearm with areas of vesicular formation most notably on the dorsum of the right wrist, edema does extend past the forearm with erythema traveling up the ventral aspect of the upper arm all of which is tender to palpation, skin is warm to touch Neuro: Other: Alert oriented, speech is clear, no facial asymmetry, no localizing neurologic deficits noted during the course of conversation Extrem: Other: Marked edema and swelling of the right upper extremity with decreased range of motion in both flexion and extension of the right hand and right wrist due to degree of edema with edema extending up past the elbow into the mid upper arm Psych: Other: Appropriate mood and affect, pleasant and cooperative, judgment and insight intact Objective Data Vital Signs Vital Signs: Vital Signs - 24 hr 07/13/25 16:01 07/13/25 18:49 07/13/25 18:49 Temperature 97.9 F Pulse Rate 101 H 88 Respiratory Rate 16 16 Blood Pressure 111/51 L 104/48 L Pulse Oximetry 96 99 100 Oxygen Delivery Room Air 07/13/25 18:50 07/13/25 19:00 07/13/25 19:01 Temperature Pulse Rate Respiratory Rate Blood Pressure 104/48 L 115/57 L Pulse Oximetry 100 98 100 Oxygen Delivery 07/13/25 19:15 07/13/25 19:17 07/13/25 19:30 Temperature Pulse Rate Respiratory Rate Blood Pressure 94/50 L Pulse Oximetry 100 100 97 Oxygen Delivery 07/13/25 21:39 07/13/25 21:45 07/13/25 22:00 Temperature Pulse Rate Respiratory Rate Blood Pressure Pulse Oximetry 96 97 97 Oxygen Delivery 07/13/25 22:16 07/14/25 00:00 07/14/25 00:30 Temperature 97.7 F Pulse Rate 70 93 Respiratory Rate 18 Blood Pressure 110/58 L 144/68 H Pulse Oximetry 100 98 Oxygen Delivery Room Air 07/14/25 06:14 Temperature 98.1 F Pulse Rate 89 Respiratory Rate 18 Blood Pressure 150/64 H Pulse Oximetry 97 Oxygen Delivery Intake/Output Intake/Output: Intake & Output 07/11/25 07/12/25 07/13/25 07/14/25 23:59 23:59 23:59 23:59 Intake Total 2350 400 Balance 2350 400 Meds/Results Medications: Active Medications Generic Name Dose Route Start Last Admin Trade Name Freq PRN Reason Stop Dose Admin Acetaminophen 650 mg 07/14/25 00:07 Acetaminophen 325 Mg Tablet PO Q4H PRN Mild Pain (1-3) or Fever Calcium Carbonate 200 mg 07/13/25 20:51 Calcium Carbonate (Tums) 500 Mg (200 Mg Elemental) PO Q6H PRN Indigestion Enoxaparin Sodium 40 mg 07/14/25 09:00 Enoxaparin 40 Mg/0.4 Ml Syringe SUB-Q DAILY [facility] Vancomycin HCl 1,250 mg in 250 mls @ 166.667 mls/hr 07/14/25 08:00 Vancomycin 1,250 Mg/Ns 250 Ml IVPB Q12H LEIA Sodium Chloride 1,000 mls @ 100 mls/hr 07/13/25 20:50 07/13/25 21:40 Normal Saline Iv IV CONT 100 mls/hr .Q10H LEIA Administration Ibuprofen 600 mg 07/14/25 00:07 Ibuprofen 600 Mg Tablet PO Q6H PRN Pain Rated 4-6 Morphine Sulfate 4 mg 07/13/25 20:51 07/14/25 04:02 Morphine Sulfate (*Crx) 4 Mg/Ml Inj IV PUSH 4 mg Q4H PRN Administration Pain Rated 7-10 Nicotine 1 patch 07/14/25 09:00 Nicotine (*Pbkc) 21 Mg Patch TRANSDERM QAM [facility] Ondansetron HCl 4 mg 07/13/25 20:51 Ondansetron Inj 4 Mg/2 Ml Vial IV PUSH Q6H PRN Nausea And Vomiting Radiology Results: ITS Impressions Forearm X-Ray 07/13/25 17:08 Impression: 1: No acute bone or joint abnormality. Labs Labs: Laboratory Results - last 24 hr 07/13/25 07/13/25 07/14/25 17:23 17:35 00:23 WBC 11.2 H RBC 4.65 Hgb 13.4 Hct 41.1 MCV 88.4 MCH 28.8 MCHC 32.6 RDW 13.9 Plt Count 176 MPV 9.8 Immature Gran % (Auto) 0.4 Neut % (Auto) 80.5 H Lymph % (Auto) 9.4 L [place] % (Auto) 9.0 H Eos % (Auto) 0.4 Baso % (Auto) 0.3 Lymph # (Auto) 1.05 [place] # (Auto) 1.0 H Eos # (Auto) 0.0 Baso # (Auto) 0.0 Abs Immat Gran (auto) 0.04 H Absolute Neuts (auto) 9.0 H Absolute Nucleated RBC 0.000 Nucleated RBC % 0.0 PT 13.5 INR 1.0 APTT 24.8 Sodium 134 L Potassium 3.6 Chloride 102 Carbon Dioxide 23 Anion Gap 9 BUN 22 H Creatinine 0.53 L Estim Creat Clear Calc 80 Estimated GFR > 60 Glucose 141 H Hemoglobin A1c Lactic Acid 0.9 Calcium 9.3 Total Bilirubin 0.6 AST 26 ALT 21 Alkaline Phosphatase 128 H C-Reactive Protein 36.7 H Total Protein 7.7 Albumin 4.0 TSH (Reflex) Urine Color Dark yellow Urine Appearance Cloudy H Urine pH 5.5 Ur Specific [place] 1.037 H Urine Protein 2+ H Urine Glucose (UA) Negative Urine Ketones Trace H Ur Blood (Man) Negative Urine Nitrate Negative Urine Bilirubin 1+ H Urine Urobilinogen 1.0 Add Ur Microanalysis Reviewed Leukocyte Esterase Rfl 1+ H Urine RBC 6-10 H Urine WBC 6-10 H Ur Squamous Epith Cells Many H Urine Bacteria 3+ H Urine Casts 3-5 Urine Opiates Screen Negative Urine Methadone Screen Negative Ur Barbiturates Screen Negative Ur Phencyclidine Scrn Negative Ur Amphetamine Screen Positive A U Benzodiazepines Scrn Negative Urine Cocaine Screen Negative U Cannabinoids Screen Negative Group A Strep (PCR) Not detected 07/14/25 05:34 WBC 9.9 RBC 3.96 L Hgb 11.4 L Hct 35.6 L MCV 89.9 MCH 28.8 MCHC 32.0 RDW 14.1 Plt Count 191 MPV 9.9 Immature Gran % (Auto) 0.4 Neut % (Auto) 76.9 H Lymph % (Auto) 11.7 L [place] % (Auto) 8.4 Eos % (Auto) 2.2 Baso % (Auto) 0.4 Lymph # (Auto) 1.16 [place] # (Auto) 0.8 H Eos # (Auto) 0.2 Baso # (Auto) 0.0 Abs Immat Gran (auto) 0.04 H Absolute Neuts (auto) 7.6 H Absolute Nucleated RBC 0.000 Nucleated RBC % 0.0 PT INR APTT Sodium 136 L Potassium 3.5 Chloride 106 Carbon Dioxide 23 Anion Gap 7 BUN 16 Creatinine 0.46 L Estim Creat Clear Calc 89 Estimated GFR > 60 Glucose 121 H Hemoglobin A1c 6.4 H Lactic Acid Calcium 8.2 L Total Bilirubin AST ALT Alkaline Phosphatase C-Reactive Protein Total Protein Albumin TSH (Reflex) 1.240 Urine Color Urine Appearance Urine pH Ur Specific [place] Urine Protein Urine Glucose (UA) Urine Ketones Ur Blood (Man) Urine Nitrate Urine Bilirubin Urine Urobilinogen Add Ur Microanalysis Leukocyte Esterase Rfl Urine RBC Urine WBC Ur Squamous Epith Cells Urine Bacteria Urine Casts Urine Opiates Screen Urine Methadone Screen Ur Barbiturates Screen Ur Phencyclidine Scrn Ur Amphetamine Screen U Benzodiazepines Scrn Urine Cocaine Screen U Cannabinoids Screen Group A Strep (PCR) Quality VTE Prophylaxis VTE prophylaxis: pharmacologic ordered
[2025-07-14 08:00] VITALS: PULSE 89; RESP 18; O2SAT 97
[2025-07-14] MEDS: IBUPROFEN 600 MG TABLET PO ×2 (09:40→20:47)
[2025-07-14] MEDS: ENOXAPARIN 40 MG/0.4 ML SYRINGE SUB-Q (09:43)
[2025-07-14] MEDS: VANCOMYCIN 1,250 MG/NS 250 ML 1,250 MG/250 ML BAG 166.67 MG IVPB (09:44)
[2025-07-14] MEDS: NICOTINE (*PBKC) 21 MG PATCH 1 PATCH TRANSDERM (09:45)
[2025-07-14 13:31] VITALS: BP 102/51; PULSE 86; RESP 18; TEMP 36.2; O2SAT 96
[2025-07-14] MEDS: cefTRIAXone 1 GM in SODIUM CHLORIDE 0.9% IV 50 ML 100 ML IVPB (13:53)
[2025-07-14] MEDS: AZITHROMYCIN IV 500 MG in SODIUM CHLORIDE 0.9% IV 250 ML IVPB (14:32)
[2025-07-14 15:23] LABS: MRSA (PCR) NOT DETECTED (NOT DETECTE)
[2025-07-14 19:30] VITALS: O2SAT 99
[2025-07-14 20:35] VITALS: BP 104/38; PULSE 78; RESP 17; TEMP 36.8; O2SAT 99
[2025-07-15] MEDS: IBUPROFEN 600 MG TABLET PO (03:54)
[2025-07-15 06:00] VITALS: BP 114/54; PULSE 73; RESP 16; TEMP 36.6; O2SAT 98
[2025-07-15 07:28] LABS: Hematocrit 40.6 % (37.0-47.0); Hemoglobin 12.2 g/dL (12.0-15.0); Immature Granulocyte Percent A 0.9 % (0-0.5); Lymphocytes Absolute Auto 1.10 K/mm3 (0.9-3.2); Mean Corpuscular HGB Conc 30.0 g/dl (32-36); Mean Corpuscular Hemoglobin 28.9 pg (26-34); Mean Corpuscular Volume 96.2 fl (80-100); Nucleated Red Blood Cells Absolute Auto 0.000 K/mm3 (0.0-0.012); Nucleated Red Blood Cells Perc 0.0 % (0.0-0.2); Platelet Count Result 182 k/mm3 (150-375); Red Blood Count 4.22 M/mm3 (4.2-5.4); White Blood Count 5.4 K/mm3 (4.5-10.0)
--- NOTE | 2025-07-15 07:37 | PM.IMPN2 ---
Assessment and Plan Assessment and Plan (1) Cellulitis: Qualifiers: Laterality: right Site of cellulitis: extremity Site of cellulitis of extremity: upper extremity Qualified Code(s): L03.113 - Cellulitis of right upper limb Code(s): L03.90 - Cellulitis, unspecified Status: Acute Assessment and Plan: Patient has severe cellulitis of the right forearm with edema extending from the hand up into the right upper arm with associated phlegmon. RUE CT: 1. Diffuse nonspecific cellulitis throughout the right forearm without evident abscess or soft tissue gas. 2. Likely reactive lymphadenopathy at the antecubital fossa and distal upper arm. Will monitor wound closely, looking a lot better today with marked decrease in erythema and mild decrease in edema. Continue vanc (started 07/13) Continue to trend labs (2) Sepsis: Qualifiers: Sepsis acute organ dysfunction status: without acute organ dysfunction Sepsis type: sepsis due to unspecified organism Qualified Code(s): A41.9 - Sepsis, unspecified organism Code(s): A41.9 - Sepsis, unspecified organism Status: Acute Assessment and Plan: Resolved Patient did have fever up to 102.5 at home with elevated white count, and tachycardia and meets criteria for sepsis. Blood cultures have been obtained and are pending. Patient was initially started on Rocephin in the ER due to an abnormal urinalysis but patient is not having urinary symptoms and does not have a UTI. Subsequently the patient's antibiotic therapy has been changed to vancomycin. -BC pending -WBC normalized -VSS (3) Methamphetamine use: Code(s): F15.90 - Other stimulant use, unspecified, uncomplicated Status: Acute Assessment and Plan: The importance of avoiding all illicit substance use was discussed with the patient in detail. She verbalized understanding. (4) Hyperglycemia: Code(s): R73.9 - Hyperglycemia, unspecified Status: Acute Assessment and Plan: Patient does have a history of prediabetes and does have some mild hyperglycemia on admission labs. Hemoglobin A1c: 6.4, no prior result on file, will continue to trend and implement low dose sliding scale if necessary (5) Abnormal urinalysis: Code(s): R82.90 - Unspecified abnormal findings in urine Status: Acute Assessment and Plan: Patient was initially started on Rocephin in the ER due to an abnormal urinalysis but patient is not having urinary symptoms and does not have a UTI. Subsequently the patient's antibiotic therapy has been changed to vancomycin. for cellulitis. -Back on ceftriaxone for PNA (6) Community acquired pneumonia: Code(s): J18.9 - Pneumonia, unspecified organism Status: Acute Assessment and Plan: Via CXR + cough + RLL crackles WBC WDL, VSS Adding azithro & ceftriaxone 07/14 IS MRSA not detected Plan Pending BC. Continue abx for cellulitis and PNA. The importance of avoiding all illicit substance use was discussed with the patient in detail. She verbalized understanding. Patient does smoke heavily. She wanted to leave the ER to go smoke. She has been educated that if she leaves the hospital to smoke it would be considered leaving AMA. She is agreeable to stay in the hospital currently and a nicotine patch has been provided. Patient is aware that she would benefit from cessation of smoking but is not ready to contemplate this at this time. Medical Record Review I have reviewed the following patient records and this information was taken into consideration when formulating the assessment and plan.: previous labs and previous hospitalizations Time Spent With Patient Time with patient: Greater than 35 minutes Subjective Date/time seen: 07/15/25 1027 Interval history: Pt sitting up in bed upon my arrival. Reports that her RUE feels a lot better today. Denies N/V/D. No issues with breathing today. Review of Systems Review of Systems: 12 systems were reviewed with pertinent positives and negatives per HPI. Except as documented in the HPI, all other systems were reviewed and are negative. Exam Narrative: Weight 62.5 kg BMI 25.2 Const: Other: Appears much older than stated age, no acute distress, thin body habitus HENMT: Other: Mucous membranes are moist, positive oral pharyngeal erythema, edentulous in upper and lower jaw Eyes: Other: No scleral icterus, pupils are equal and reactive Neck: Other: No JVD, no lymphadenopathy, trachea midline Resp: Other: Lungs clear bilaterally, no increased work of breathing Cardio: Other: Regular rate, regular rhythm, no murmurs, 2+ bilateral radial and pedal pulses GI: Other: Soft, nontender, nondistended, positive bowel sounds Skin: Other: Papular areas of erythema to the right forearm, marked edema of the hand and forearm majority of the erythema is on the dorsal surface of the forearm with areas of vesicular formation most notably on the dorsum of the right wrist, edema does extend past the forearm with erythema traveling up the ventral aspect of the upper arm all of which is tender to palpation, skin is warm to touch. Erythema moderately less today, edema gone down a small amount. Overall looking better. Neuro: Other: Alert oriented, speech is clear, no facial asymmetry, no localizing neurologic deficits noted during the course of conversation Extrem: Other: Moderate edema and swelling of the right upper extremity with decreased range of motion in both flexion and extension of the right hand and right wrist due to degree of edema with edema extending up past the elbow into the mid upper arm Psych: Other: Appropriate mood and affect, pleasant and cooperative, judgment and insight intact Objective Data Vital Signs Vital Signs: Vital Signs - 24 hr 07/14/25 08:00 07/14/25 13:31 07/14/25 18:48 Temperature 97.2 F L Pulse Rate 89 86 Respiratory Rate 18 18 Blood Pressure 102/51 L Pulse Oximetry 97 96 Oxygen Delivery Room Air Room Air 07/14/25 19:30 07/14/25 20:35 07/14/25 20:38 Temperature 98.2 F Pulse Rate 78 Respiratory Rate 17 Blood Pressure 104/38 L Pulse Oximetry 99 99 Oxygen Delivery Room Air Room Air 07/15/25 06:00 Temperature 97.9 F Pulse Rate 73 Respiratory Rate 16 Blood Pressure 114/54 L Pulse Oximetry 98 Oxygen Delivery Intake/Output Intake/Output: Intake & Output 07/12/25 07/13/25 07/14/25 07/15/25 23:59 23:59 23:59 23:59 Intake Total 2350 2020.0 100 Balance 2350 2020.0 100 Meds/Results Medications: Active Medications Generic Name Dose Route Start Last Admin Trade Name Freq PRN Reason Stop Dose Admin Acetaminophen 650 mg 07/14/25 00:07 Acetaminophen 325 Mg Tablet PO Q4H PRN Mild Pain (1-3) or Fever Calcium Carbonate 200 mg 07/13/25 20:51 Calcium Carbonate (Tums) 500 Mg (200 Mg Elemental) PO Q6H PRN Indigestion Enoxaparin Sodium 40 mg 07/14/25 09:00 07/14/25 09:43 Enoxaparin 40 Mg/0.4 Ml Syringe SUB-Q 40 mg DAILY [facility]IA Administration Vancomycin HCl 1,250 mg in 250 mls @ 166.667 mls/hr 07/14/25 08:00 07/14/25 12:14 Vancomycin 1,250 Mg/Ns 250 Ml IVPB Infused Q12H [facility] Infusion Ceftriaxone Sodium 1 gm/ 50 mls @ 100 mls/hr 07/14/25 13:05 07/14/25 14:23 Sodium Chloride IVPB Infused QAM [facility] Infusion Azithromycin 500 mg/ Sodium 250 mls @ 250 mls/hr 07/14/25 13:05 07/14/25 15:32 Chloride IVPB 07/18/25 09:59 Infused QAM [facility] Infusion Ibuprofen 600 mg 07/14/25 00:07 07/15/25 03:54 Ibuprofen 600 Mg Tablet PO 600 mg Q6H PRN Administration Pain Rated 4-6 Morphine Sulfate 4 mg 07/13/25 20:51 07/14/25 15:39 Morphine Sulfate (*Crx) 4 Mg/Ml Inj IV PUSH 4 mg Q4H PRN Administration Pain Rated 7-10 Nicotine 1 patch 07/14/25 09:00 07/14/25 09:45 Nicotine (*Pbkc) 21 Mg Patch TRANSDERM 1 patch QAM [facility] Administration Ondansetron HCl 4 mg 07/13/25 20:51 Ondansetron Inj 4 Mg/2 Ml Vial IV PUSH Q6H PRN Nausea And Vomiting Radiology Results: ITS Impressions Forearm X-Ray 07/13/25 17:08 Impression: 1: No acute bone or joint abnormality. Forearm CT 07/14/25 08:24 IMPRESSION: 1. Diffuse nonspecific cellulitis throughout the right forearm without evident abscess or soft tissue gas. 2. Likely reactive lymphadenopathy at the antecubital fossa and distal upper arm. Chest X-Ray 07/14/25 09:13 IMPRESSION: 1. Mild bibasilar opacities which could represent atelectasis, mild pulmonary edema or pneumonia. 2. Very small bilateral pleural effusions. Venous Doppler Study 07/14/25 16:09 IMPRESSION: 1. Patent right upper extremity veins. No evidence of deep venous thrombosis. Labs Labs: Laboratory Results - last 24 hr 07/14/25 07/15/25 14:04 07:21 WBC 5.4 RBC 4.22 Hgb 12.2 Hct 40.6 MCV 96.2 D MCH 28.9 MCHC 30.0 L RDW 14.4 Plt Count 182 MPV 9.7 Immature Gran % (Auto) 0.9 H Neut % (Auto) 66.1 Lymph % (Auto) 20.5 [place] % (Auto) 6.7 Eos % (Auto) 4.9 H Baso % (Auto) 0.9 Lymph # (Auto) 1.10 [place] # (Auto) 0.4 Eos # (Auto) 0.3 Baso # (Auto) 0.1 Abs Immat Gran (auto) 0.05 H Absolute Neuts (auto) 3.5 Absolute Nucleated RBC 0.000 Nucleated RBC % 0.0 Nasal MRSA (PCR) Not detected Quality VTE Prophylaxis VTE prophylaxis: pharmacologic ordered
[2025-07-15 08:00] VITALS: PULSE 73; RESP 16; O2SAT 98
[2025-07-15 08:00] LABS: Alanine Aminotransferase 18 U/L (6-35); Albumin Level 3.2 g/dL (3.5-5.1); Alkaline Phosphatase 159 U/L (38-126); Anion Gap 5 mmol/L (4-12); Aspartate Amino Transferase 20 U/L (14-36); Bilirubin,Total 0.4 mg/dL (0.2-1.3); Blood Urea Nitrogen 11 mg/dL (7-17); Calcium 9.1 mg/dL (8.4-10.2); Carbon Dioxide 29 mmol/L (22-30); Chloride 106 mmol/L (98-107); Estimated CRCL calculation 97 ml/min; Estimated Glomerular Filt Rate > 60; Glucose 104 mg/dL (65-110); Potassium 4.1 mmol/L (3.4-5.0); Sodium 140 mmol/L (137-145); Total Protein 6.4 g/dL (6.3-8.2)
[2025-07-15] MEDS: cefTRIAXone 1 GM in SODIUM CHLORIDE 0.9% IV 50 ML 100 ML IVPB (10:04)
[2025-07-15] MEDS: AZITHROMYCIN IV 500 MG in SODIUM CHLORIDE 0.9% IV 250 ML IVPB (10:13)
[2025-07-15] MEDS: ENOXAPARIN 40 MG/0.4 ML SYRINGE SUB-Q (10:13)
[2025-07-15] MEDS: NICOTINE (*PBKC) 21 MG PATCH 1 PATCH TRANSDERM (10:15)
[2025-07-15] MEDS: LIDOCAINE 1% PF INJ 5 ML VIAL INFILTRATE (11:00)
[2025-07-15] MEDS: VANCOMYCIN 1,250 MG/NS 250 ML 1,250 MG/250 ML BAG 166.67 MG IVPB ×2 (13:36→21:57)
[2025-07-15] MEDS: CENTRAL LINE FLUSH 10 ML IV PUSH ×2 (13:45→21:58)
[2025-07-15 14:00] VITALS: BP 118/64; PULSE 62; RESP 18; TEMP 36.9; O2SAT 99
[2025-07-15 21:04] VITALS: BP 138/64; PULSE 73; RESP 18; TEMP 36.4; O2SAT 98
[2025-07-16] MEDS: CENTRAL LINE FLUSH 10 ML IV PUSH ×3 (05:26→22:52)
[2025-07-16] MEDS: CENTRAL LINE FLUSH 20 ML IV PUSH (05:26)
[2025-07-16 05:32] LABS: Hematocrit 36.3 % (37.0-47.0); Hemoglobin 11.9 g/dL (12.0-15.0); Immature Granulocyte Percent A 1.4 % (0-0.5); Lymphocytes Absolute Auto 1.30 K/mm3 (0.9-3.2); Mean Corpuscular HGB Conc 32.8 g/dl (32-36); Mean Corpuscular Hemoglobin 29.3 pg (26-34); Mean Corpuscular Volume 89.4 fl (80-100); Nucleated Red Blood Cells Absolute Auto 0.000 K/mm3 (0.0-0.012); Nucleated Red Blood Cells Perc 0.0 % (0.0-0.2); Platelet Count Result 266 k/mm3 (150-375); Red Blood Count 4.06 M/mm3 (4.2-5.4); White Blood Count 5.9 K/mm3 (4.5-10.0)
[2025-07-16 05:39] VITALS: BP 128/66; PULSE 71; RESP 16; TEMP 36.1; O2SAT 97
[2025-07-16 05:53] LABS: Alanine Aminotransferase 16 U/L (6-35); Albumin Level 3.1 g/dL (3.5-5.1); Alkaline Phosphatase 130 U/L (38-126); Anion Gap 4 mmol/L (4-12); Aspartate Amino Transferase 22 U/L (14-36); Bilirubin,Total 0.3 mg/dL (0.2-1.3); Blood Urea Nitrogen 14 mg/dL (7-17); Calcium 8.5 mg/dL (8.4-10.2); Carbon Dioxide 27 mmol/L (22-30); Chloride 107 mmol/L (98-107); Estimated CRCL calculation 93 ml/min; Estimated Glomerular Filt Rate > 60; Glucose 97 mg/dL (65-110); Potassium 3.8 mmol/L (3.4-5.0); Sodium 138 mmol/L (137-145); Total Protein 6.4 g/dL (6.3-8.2)
[2025-07-16] MEDS: cefTRIAXone 1 GM in SODIUM CHLORIDE 0.9% IV 50 ML 100 ML IVPB (08:42)
[2025-07-16] MEDS: NICOTINE (*PBKC) 21 MG PATCH 1 PATCH TRANSDERM (08:42)
[2025-07-16] MEDS: ENOXAPARIN 40 MG/0.4 ML SYRINGE SUB-Q (08:43)
[2025-07-16] MEDS: AZITHROMYCIN IV 500 MG in SODIUM CHLORIDE 0.9% IV 250 ML IVPB (09:20)
--- NOTE | 2025-07-16 09:51 | PM.IMPN2 ---
Assessment and Plan Assessment and Plan (1) Cellulitis: Qualifiers: Laterality: right Site of cellulitis: extremity Site of cellulitis of extremity: upper extremity Qualified Code(s): L03.113 - Cellulitis of right upper limb Code(s): L03.90 - Cellulitis, unspecified Status: Acute Assessment and Plan: Patient has severe cellulitis of the right forearm with edema extending from the hand up into the right upper arm with associated phlegmon. RUE CT: 1. Diffuse nonspecific cellulitis throughout the right forearm without evident abscess or soft tissue gas. 2. Likely reactive lymphadenopathy at the antecubital fossa and distal upper arm. Will monitor wound closely, looking a lot better today with marked decrease in erythema and mild decrease in edema. Continue vanc (started 07/13) hopeful to transition to doxy PO tomorrow Continue to trend labs (2) Sepsis: Qualifiers: Sepsis type: sepsis due to unspecified organism Sepsis acute organ dysfunction status: without acute organ dysfunction Qualified Code(s): A41.9 - Sepsis, unspecified organism Code(s): A41.9 - Sepsis, unspecified organism Status: Acute Assessment and Plan: Resolved Patient did have fever up to 102.5 at home with elevated white count, and tachycardia and meets criteria for sepsis. Blood cultures have been obtained and are pending. Patient was initially started on Rocephin in the ER due to an abnormal urinalysis but patient is not having urinary symptoms and does not have a UTI. Subsequently the patient's antibiotic therapy has been changed to vancomycin. -BC pending -WBC normalized -VSS (3) Methamphetamine use: Code(s): F15.90 - Other stimulant use, unspecified, uncomplicated Status: Acute Assessment and Plan: The importance of avoiding all illicit substance use was discussed with the patient in detail. She verbalized understanding. (4) Hyperglycemia: Code(s): R73.9 - Hyperglycemia, unspecified Status: Acute Assessment and Plan: Patient does have a history of prediabetes and does have some mild hyperglycemia on admission labs. Hemoglobin A1c: 6.4, no prior result on file, will continue to trend and implement low dose sliding scale if necessary (5) Abnormal urinalysis: Code(s): R82.90 - Unspecified abnormal findings in urine Status: Acute Assessment and Plan: Patient was initially started on Rocephin in the ER due to an abnormal urinalysis but patient is not having urinary symptoms and does not have a UTI. Subsequently the patient's antibiotic therapy has been changed to vancomycin. for cellulitis. -Back on ceftriaxone for PNA (6) Community acquired pneumonia: Code(s): J18.9 - Pneumonia, unspecified organism Status: Acute Assessment and Plan: Via CXR + cough + RLL crackles WBC WDL, VSS Added azithro & ceftriaxone 07/14 IS MRSA not detected Plan Pending BC. Continue abx for cellulitis and PNA. The importance of avoiding all illicit substance use was discussed with the patient in detail. She verbalized understanding. Patient does smoke heavily. She wanted to leave the ER to go smoke. She has been educated that if she leaves the hospital to smoke it would be considered leaving AMA. She is agreeable to stay in the hospital currently and a nicotine patch has been provided. Patient is aware that she would benefit from cessation of smoking but is not ready to contemplate this at this time. Medical Record Review I have reviewed the following patient records and this information was taken into consideration when formulating the assessment and plan.: previous labs and previous hospitalizations Time Spent With Patient Time with patient: Greater than 35 minutes Subjective Date/time seen: 07/16/25 09:51 Interval history: Pt sitting up in bed upon my arrival. Reports that her RUE continues to feel better today. Denies N/V/D. No issues with breathing today. Discussed the POC of probable discharge tomorrow, just pending prelim results of her BC, pt agreeable with plan. Review of Systems Review of Systems: 12 systems were reviewed with pertinent positives and negatives per HPI. Except as documented in the HPI, all other systems were reviewed and are negative. Exam Narrative: Weight 62.5 kg BMI 25.2 Const: Other: Appears much older than stated age, no acute distress, thin body habitus HENMT: Other: Mucous membranes are moist, positive oral pharyngeal erythema, edentulous in upper and lower jaw Eyes: Other: No scleral icterus, pupils are equal and reactive Neck: Other: No JVD, no lymphadenopathy, trachea midline Resp: Other: Lungs clear bilaterally, no increased work of breathing Cardio: Other: Regular rate, regular rhythm, no murmurs, 2+ bilateral radial and pedal pulses GI: Other: Soft, nontender, nondistended, positive bowel sounds Skin: Other: Papular areas of erythema to the right forearm, no more blisters present. Mild edema of the forearm down to the hand remain but are better today. Scant erythema is on the dorsal surface of the forearm. Skin not warm to touch. Erythema and edema continues to decrease daily. Overall looking better. Neuro: Other: Alert oriented, speech is clear, no facial asymmetry, no localizing neurologic deficits noted during the course of conversation Extrem: Other: Moderate edema of the right upper extremity with decreased range of motion in both flexion and extension of the right hand and right wrist due to degree of edema. Psych: Other: Appropriate mood and affect, pleasant and cooperative, judgment and insight intact Objective Data Vital Signs Vital Signs: Vital Signs - 24 hr 07/15/25 14:00 07/15/25 21:04 07/15/25 21:48 Temperature 98.4 F 97.6 F Pulse Rate 62 73 Respiratory Rate 18 18 Blood Pressure 118/64 138/64 Pulse Oximetry 99 98 Oxygen Delivery Room Air 07/16/25 05:39 Temperature 97 F L Pulse Rate 71 Respiratory Rate 16 Blood Pressure 128/66 Pulse Oximetry 97 Oxygen Delivery Intake/Output Intake/Output: Intake & Output 07/13/25 07/14/25 07/15/25 07/16/25 23:59 23:59 23:59 23:59 Intake Total 2350 2020.0 3200 730 Balance 2350 2020.0 3200 730 Meds/Results Medications: Active Medications Generic Name Dose Route Start Last Admin Trade Name Freq PRN Reason Stop Dose Admin Acetaminophen 650 mg 07/14/25 00:07 Acetaminophen 325 Mg Tablet PO Q4H PRN Mild Pain (1-3) or Fever Calcium Carbonate 200 mg 07/13/25 20:51 Calcium Carbonate (Tums) 500 Mg (200 Mg Elemental) PO Q6H PRN Indigestion Enoxaparin Sodium 40 mg 07/14/25 09:00 07/16/25 08:43 Enoxaparin 40 Mg/0.4 Ml Syringe SUB-Q 40 mg DAILY LEIA Administration Ceftriaxone Sodium 1 gm/ 50 mls @ 100 mls/hr 07/14/25 13:05 07/16/25 08:42 Sodium Chloride IVPB 07/18/25 09:29 100 mls/hr QAM LEIA Administration Azithromycin 500 mg/ Sodium 250 mls @ 250 mls/hr 07/14/25 13:05 07/16/25 09:20 Chloride IVPB 07/18/25 09:59 250 mls/hr QAM LEIA Administration Vancomycin HCl 1,250 mg in 250 mls @ 166.667 mls/hr 07/15/25 10:00 07/15/25 23:27 Vancomycin 1,250 Mg/Ns 250 Ml IVPB Infused Q12H LEIA Infusion Ibuprofen 600 mg 07/14/25 00:07 07/15/25 03:54 Ibuprofen 600 Mg Tablet PO 600 mg Q6H PRN Administration Pain Rated 4-6 Morphine Sulfate 4 mg 07/13/25 20:51 07/14/25 15:39 Morphine Sulfate (*Crx) 4 Mg/Ml Inj IV PUSH 4 mg Q4H PRN Administration Pain Rated 7-10 Nicotine 1 patch 07/14/25 09:00 07/16/25 08:42 Nicotine (*Pbkc) 21 Mg Patch TRANSDERM 1 patch QAM LEIA Administration Ondansetron HCl 4 mg 07/15/25 17:27 Ondansetron Inj 4 Mg/2 Ml Vial IV PUSH Q6H PRN Nausea And Vomiting Sodium Chloride 10 ml 07/15/25 14:00 07/16/25 05:26 Central Line Flush IV PUSH 10 ml Q8HR LEIA Administration Sodium Chloride 10 ml 07/15/25 11:42 Central Line Flush IV PUSH PRN PRN with TPN bag changes Sodium Chloride 20 ml 07/15/25 11:42 07/16/25 05:26 Central Line Flush IV PUSH 20 ml PRN PRN Administration after blood draws Radiology Results: ITS Impressions Forearm X-Ray 07/13/25 17:08 Impression: 1: No acute bone or joint abnormality. Forearm CT 07/14/25 08:24 IMPRESSION: 1. Diffuse nonspecific cellulitis throughout the right forearm without evident abscess or soft tissue gas. 2. Likely reactive lymphadenopathy at the antecubital fossa and distal upper arm. Chest X-Ray 07/14/25 09:13 IMPRESSION: 1. Mild bibasilar opacities which could represent atelectasis, mild pulmonary edema or pneumonia. 2. Very small bilateral pleural effusions. Venous Doppler Study 07/14/25 16:09 IMPRESSION: 1. Patent right upper extremity veins. No evidence of deep venous thrombosis. Labs Labs: Laboratory Results - last 24 hr 07/16/25 05:25 WBC 5.9 RBC 4.06 L Hgb 11.9 L Hct 36.3 L MCV 89.4 D MCH 29.3 MCHC 32.8 RDW 13.9 Plt Count 266 MPV 9.4 Immature Gran % (Auto) 1.4 H Neut % (Auto) 60.5 Lymph % (Auto) 22.0 [place] % (Auto) 8.1 Eos % (Auto) 7.3 H Baso % (Auto) 0.7 Lymph # (Auto) 1.30 [place] # (Auto) 0.5 Eos # (Auto) 0.4 H Baso # (Auto) 0.0 Abs Immat Gran (auto) 0.08 H Absolute Neuts (auto) 3.6 Absolute Nucleated RBC 0.000 Nucleated RBC % 0.0 Sodium 138 Potassium 3.8 Chloride 107 Carbon Dioxide 27 Anion Gap 4 BUN 14 Creatinine 0.44 L Estim Creat Clear Calc 93 Estimated GFR > 60 Glucose 97 Calcium 8.5 Total Bilirubin 0.3 AST 22 ALT 16 Alkaline Phosphatase 130 H Total Protein 6.4 Albumin 3.1 L Quality VTE Prophylaxis VTE prophylaxis: pharmacologic ordered
[2025-07-16] MEDS: VANCOMYCIN 1,500 MG/NS 500 ML 1,500 MG/500 ML BAG 250 MG IVPB ×2 (12:18→20:37)
[2025-07-16 14:00] VITALS: BP 144/65; PULSE 79; RESP 18; TEMP 36.6; O2SAT 98
[2025-07-16] MEDS: IBUPROFEN 600 MG TABLET PO (20:39)
[2025-07-16 20:44] VITALS: BP 145/68; PULSE 82; RESP 16; TEMP 36.4; O2SAT 96
[2025-07-17] MEDS: VANCOMYCIN 1,500 MG/NS 500 ML 1,500 MG/500 ML BAG 250 MG IVPB (03:54)
[2025-07-17 05:57] VITALS: BP 140/67; PULSE 69; RESP 16; TEMP 36.8; O2SAT 95
[2025-07-17] MEDS: CENTRAL LINE FLUSH 10 ML IV PUSH (06:15)
[2025-07-17 06:26] LABS: Hematocrit 38.5 % (37.0-47.0); Hemoglobin 12.3 g/dL (12.0-15.0); Immature Granulocyte Percent A 1.9 % (0-0.5); Lymphocytes Absolute Auto 1.59 K/mm3 (0.9-3.2); Mean Corpuscular HGB Conc 31.9 g/dl (32-36); Mean Corpuscular Hemoglobin 28.5 pg (26-34); Mean Corpuscular Volume 89.3 fl (80-100); Nucleated Red Blood Cells Absolute Auto 0.000 K/mm3 (0.0-0.012); Nucleated Red Blood Cells Perc 0.0 % (0.0-0.2); Platelet Count Result 282 k/mm3 (150-375); Red Blood Count 4.31 M/mm3 (4.2-5.4); White Blood Count 6.4 K/mm3 (4.5-10.0)
[2025-07-17 06:46] LABS: Alanine Aminotransferase 17 U/L (6-35); Albumin Level 3.1 g/dL (3.5-5.1); Alkaline Phosphatase 125 U/L (38-126); Anion Gap 1 mmol/L (4-12); Aspartate Amino Transferase 29 U/L (14-36); Bilirubin,Total 0.5 mg/dL (0.2-1.3); Blood Urea Nitrogen 10 mg/dL (7-17); Calcium 8.5 mg/dL (8.4-10.2); Carbon Dioxide 31 mmol/L (22-30); Chloride 107 mmol/L (98-107); Estimated CRCL calculation 84 ml/min; Estimated Glomerular Filt Rate > 60; Glucose 91 mg/dL (65-110); Potassium 4.0 mmol/L (3.4-5.0); Sodium 139 mmol/L (137-145); Total Protein 6.5 g/dL (6.3-8.2)
[2025-07-17] MEDS: AZITHROMYCIN IV 500 MG in SODIUM CHLORIDE 0.9% IV 250 ML IVPB (08:19)
[2025-07-17] MEDS: NICOTINE (*PBKC) 21 MG PATCH 1 PATCH TRANSDERM (08:19)
[2025-07-17] MEDS: cefTRIAXone 1 GM in SODIUM CHLORIDE 0.9% IV 50 ML 100 ML IVPB (08:19)
[2025-07-17] MEDS: ENOXAPARIN 40 MG/0.4 ML SYRINGE SUB-Q (08:19)
--- NOTE | 2025-07-17 08:35 | P.DS_ITS ---
DS: Admitting Diagnosis Discharge Date 07/17/2025 Admitting Diagnosis Cellulitis DS: Discharge Diagnosis Discharge Diagnosis (1) Cellulitis: Qualifiers: Laterality: right Site of cellulitis: extremity Site of cellulitis of extremity: upper extremity Qualified Code(s): L03.113 - Cellulitis of right upper limb Code(s): L03.90 - Cellulitis, unspecified Status: Acute Assessment and Plan: Patient has severe cellulitis of the right forearm with edema extending from the hand up into the right upper arm with associated phlegmon. RUE CT: 1. Diffuse nonspecific cellulitis throughout the right forearm without evident abscess or soft tissue gas. 2. Likely reactive lymphadenopathy at the antecubital fossa and distal upper arm. Will monitor wound closely, looking a lot better today, erythema gone and mild decrease in edema. Continue vanc (started 07/13) with transition to Bactrim DS (2) Sepsis: Qualifiers: Sepsis acute organ dysfunction status: without acute organ dysfunction Sepsis type: sepsis due to unspecified organism Qualified Code(s): A41.9 - Sepsis, unspecified organism Code(s): A41.9 - Sepsis, unspecified organism Status: Acute Assessment and Plan: Resolved Patient did have fever up to 102.5 at home with elevated white count, and tachycardia and meets criteria for sepsis. Blood cultures have been obtained and are pending. Patient was initially started on Rocephin in the ER due to an abnormal urinalysis but patient is not having urinary symptoms and does not have a UTI. Subsequently the patient's antibiotic therapy has been changed to vancomycin. -BC pending -WBC normalized -VSS (3) Methamphetamine use: Code(s): F15.90 - Other stimulant use, unspecified, uncomplicated Status: Acute Assessment and Plan: The importance of avoiding all illicit substance use was discussed with the patient in detail. She verbalized understanding. (4) Hyperglycemia: Code(s): R73.9 - Hyperglycemia, unspecified Status: Acute Assessment and Plan: Patient does have a history of prediabetes and does have some mild hyperglycemia on admission labs. Hemoglobin A1c: 6.4, no prior result on file, will continue to trend and implement low dose sliding scale if necessary (5) Abnormal urinalysis: Code(s): R82.90 - Unspecified abnormal findings in urine Status: Acute Assessment and Plan: Patient was initially started on Rocephin in the ER due to an abnormal urinalysis but patient is not having urinary symptoms and does not have a UTI. Subsequently the patient's antibiotic therapy has been changed to vancomycin. for cellulitis. -Back on ceftriaxone for PNA (6) Community acquired pneumonia: Code(s): J18.9 - Pneumonia, unspecified organism Status: Acute Assessment and Plan: Via CXR + cough + RLL crackles WBC WDL, VSS Added azithro & ceftriaxone 07/14, to finish this course PO abx at home IS MRSA not detected Plan Pt to be discharged today home with remaining course of abx for cellulitis and PNA. The importance of avoiding all illicit substance use was discussed with the patient in detail. She verbalized understanding. Patient does smoke heavily. She wanted to leave the ER to go smoke. She has been educated that if she leaves the hospital to smoke it would be considered leaving AMA. She is agreeable to stay in the hospital currently and a nicotine patch has been provided. Patient is aware that she would benefit from cessation of smoking but is not ready to contemplate this at this time. DS: Summary Hospital Course Reason for hospitalization: Cellulitia, PNA Hospital Course: The patient is a 54-year-old female who presented on 07/13/25 with a 5-day hist ory of progressive right upper extremity redness, swelling, and pain following a scratch to the forearm while cleaning. On presentation, she was noted to have extensive erythema and edema extending from the hand to the mid?upper arm with vesicular changes and decreased range of motion. Initial evaluation demonstrated leukocytosis, markedly elevated CRP, tachycardia, and a reported fever to 102.5?F at home, meeting criteria for sepsis without acute organ dysfunction. Imaging including right forearm X-ray and CT scan showed diffuse cellulitis without abscess or soft tissue gas and reactive antecubital lymphadenopathy and venous doppler study to the RUE which ruled out DVT. Blood cultures were obtained and remained without growth at the time of discharge. She was initially treated in the emergency department with IV fluids and broad- spectrum antibiotics and subsequently admitted for severe right upper extremity cellulitis with associated sepsis. Antibiotic therapy was transitioned to IV vancomycin with close monitoring for clinical improvement and potential abscess formation. Over the hospital course, the patient demonstrated steady improvement with marked reduction in erythema, resolution of vesicular lesions, and gradual improvement in edema and pain. Her leukocytosis resolved, vital signs stabilized, and sepsis was considered resolved. During hospitalization, she was also found to have community-acquired pneumonia based on chest X-ray findings, cough, and lung exam, and was treated with ceftriaxone and azithromycin with good clinical response. Mild hyperglycemia was noted, and hemoglobin A1c was consistent with prediabetes; glucose levels remained controlled without need for scheduled insulin. An abnormal urinalysis was felt to be noninfectious, as she had no urinary symptoms, and no UTI was diagnosed. Substance use counseling was provided regarding recent methamphetamine use, and smoking cessation was discussed; a nicotine patch was used during admission. By the day of discharge on 07/17/25, the patient was afebrile, hemodynamically stable, tolerating diet, and clinically improved with significantly decreased right upper extremity erythema and edema. She was deemed safe for discharge home on oral antibiotics to complete treatment for cellulitis and pneumonia, with close outpatient follow-up arranged. Status at Discharge Overall status at discharge: patient is progressing back to baseline Time Spent with Patient Time attestation: Total time spent providing and/or coordinating discharge services: Time spent: Greater than 30 minutes Exam Narrative: Weight 62.5 kg BMI 25.2 Const: Other: Appears much older than stated age, no acute distress, thin body habitus HENMT: Other: Mucous membranes are moist, positive oral pharyngeal erythema, edentulous in upper and lower jaw Eyes: Other: No scleral icterus, pupils are equal and reactive Neck: Other: No JVD, no lymphadenopathy, trachea midline Resp: Other: Lungs clear bilaterally, no increased work of breathing Cardio: Other: Regular rate, regular rhythm, no murmurs, 2+ bilateral radial and pedal pulses GI: Other: Soft, nontender, nondistended, positive bowel sounds Skin: Other: Papular areas of erythema to the right forearm, no more blisters present. Mild edema of the forearm down to the hand remain but continue to be better today. No erythema is on the dorsal surface of the forearm anymore. Skin not warm to touch. Edema continues to decrease daily. Overall looking better. Neuro: Other: Alert oriented, speech is clear, no facial asymmetry, no localizing neurologic deficits noted during the course of conversation Extrem: Other: Moderate edema of the right upper extremity with decreased range of motion in both flexion and extension of the right hand and right wrist due to degree of edema, improving daily. Psych: Other: Appropriate mood and affect, pleasant and cooperative, judgment and insight intact DS: Data Data Completed and Pending Completed studies during hospitalization: Labs, urine, imaging Labs on day of discharge: Labs from last 24 hours 07/17/25 07/16/25 06:09 10:38 WBC 6.4 RBC 4.31 Hgb 12.3 Hct 38.5 MCV 89.3 MCH 28.5 MCHC 31.9 L RDW 13.7 Plt Count 282 MPV 9.3 Immature Gran % (Auto) 1.9 H Neut % (Auto) 58.1 Lymph % (Auto) 24.8 [place] % (Auto) 6.3 Eos % (Auto) 8.1 H Baso % (Auto) 0.8 Lymph # (Auto) 1.59 [place] # (Auto) 0.4 Eos # (Auto) 0.5 H Baso # (Auto) 0.1 Abs Immat Gran (auto) 0.12 H Absolute Neuts (auto) 3.7 Absolute Nucleated RBC 0.000 Nucleated RBC % 0.0 Sodium 139 Potassium 4.0 Chloride 107 Carbon Dioxide 31 H Anion Gap 1 L BUN 10 Creatinine 0.49 L Estim Creat Clear Calc 84 Estimated GFR > 60 Glucose 91 Calcium 8.5 Total Bilirubin 0.5 AST 29 ALT 17 Alkaline Phosphatase 125 Total Protein 6.5 Albumin 3.1 L Vancomycin Trough 8.4 L Preliminary micro results at discharge 07/13/25 17:23 Blood Culture - Preliminary Blood 07/13/25 20:04 Blood Culture - Preliminary Blood Discharge Plan Discharge Attending physician on discharge: Elvin Lopez Consulting providers: David Vee; Angie Alonzo Discharging Clinician: Angie Alonzo Anticipated Discharge Date/Time: 07/17/25 13:00 Patient Disposition: Home Activity: as tolerated Diet: diabetic Discharge Instructions: * Medications * Take?Bactrim?and?Augmentin?exactly as prescribed until?all doses are finished, even if you feel better. * Do not skip doses. Take with food if stomach upset occurs. * Call if you develop rash, severe diarrhea, vomiting, or signs of allergy. * Cellulitis Care * Keep the affected area?clean and dry. * Elevate the affected limb when possible to reduce swelling. * You may gently laura the edges of redness; redness should not continue to spread. * Expect gradual improvement over several days. * When at work, wear an goldy wrap and extended gloves if working around water and food. * Pneumonia Care * Rest and stay well hydrated. * Use deep breathing and coughing to help clear mucus. * Avoid smoking or vaping. * Activity * Resume activity as tolerated. * Avoid strenuous activity until strength and breathing are back to baseline. * Follow-Up * Follow up with your primary care provider as instructed or within?3?7 days. * Sooner follow-up if symptoms are not improving after 48?72 hours of antibiotics. * Your lab levels were also concerning for diabetes, it is important to follow-up with a primary care provider to make sure this is managed, this can affect wound healing as well. * Return to Care / Seek Urgent Help If * Fever >101?F that does not improve or returns. * Worsening redness, swelling, pain, or drainage from the skin. * Shortness of breath, chest pain, worsening cough, or low oxygen symptoms. * New confusion, dizziness, or inability to keep medications down. Patient Instructions: Antibiotic Form, Sulfamethoxazole/Trimethoprim (By mouth), Amoxicillin/Clavulanate Potassium (By mouth), Cellulitis (GEN), Community Acquired Pneumonia (GEN), Removal of a Central Line, PICC, or Midline Catheter (DC) Patient Language: Brazilian Stand Alone Forms: General Discharge Information, Work/School Release IP Follow-up/Referrals: David Vee MD [Physician, Family Practice] - 2 Weeks Discharge Medications: New sulfamethoxazole-trimethoprim [Bactrim DS] 800-160 mg tablet 1 tablet PO Q12H Qty: 2 0RF amoxicillin-pot clavulanate [Augmentin] 500-125 mg tablet 1 tablet PO Q12H Qty: 2 0RF Date of admission: 07/13/25 20:48 Primary Care Provider: PHYSICIAN,GOVERNMENT RELATIONS DIRECTOR Admitting Provider: Chantale Mederos Attending physician on admission: Chantale Mederos Condition: Stable Quality VTE Prophylaxis VTE prophylaxis: pharmacologic ordered Hospitalist MIPS Heart Failure (Exclusion) Patient has history of Heart Transplant or Left Ventricular Assistive Device?: No IF YES, STOP HERE Heart Failure (Qualifier) Patient has current or prior documentation of LVEF less than or equal to 40%, or mod/servere depressed LVSF?: No IF NO, STOP HERE
--- NOTE | 2025-07-21 09:40 | PC.NURSE ---
Blood cx show no growth.
== END 2025-07-17 12:20 | disposition home or self-care (01) | DRG 720 ==
LOC: ANHED 21:31 → ANH2MED 21:53
PROVIDERS: Admitting Provider Internal Medicine; Emergency Provider Registered Nurse
DX: A41.9 Sepsis, unspecified organism (principal); L03.113 Cellulitis of right upper limb; J18.9 Pneumonia, unspecified organism; J44.0 Chronic obstructive pulmonary disease with (acute) lower respiratory infection; F15.90 Other stimulant use, unspecified, uncomplicated; I10 Essential (primary) hypertension; R73.03 Prediabetes; R73.9 Hyperglycemia, unspecified; F17.210 Nicotine dependence, cigarettes, uncomplicated
CPT/HCPCS: 36415; 36569; 71046; 73090; 73201; 80048; 80053; 80202; 80307; 81001; 83036; 83605; 84443; 85025; 85610; 85730; 86140; 87040; 87641; 87651; 93005; 93971; 96361; 96374; 99285; A9270; C1751; J0456; J0696; J1650; J1885; J2003; J2270; J3373; J7030; J7050; Q9967